=== PATIENT | male | born 1970 | race Caucasian/White ===

== ENCOUNTER 2017-05-16 16:35 | Outpatient (CLI) | payer BC ==
--- NOTE | 2017-05-16 16:49 | RAD ---
RADIOGRAPH CHEST 2 VIEWS: HISTORY: 47-year-old male with bronchitis, cough, and dyspnea. FINDINGS: There is no air space density, pulmonary edema, pleural effusion, pneumothorax, or cardiomegaly. IMPRESSION: No acute cardiopulmonary findings. jn POS: [facility]
== END 2017-05-16 16:36 | disposition home or self-care (01) ==
LOC: SCSRAD 16:35
PROVIDERS: ATTEND Nurse Practitioner Family
DX: J40 Bronchitis, not specified as acute or chronic (principal)
CPT/HCPCS: 71046

== ENCOUNTER 2018-08-28 07:53 | Emergency (ER) | payer BC ==
[2018-08-28 08:53] LABS: #Eosinphils 0.1 thou/uL (0.0-0.7); #Lymphocytes 1.6 thou/uL (1.20-3.40); #Monocytes 0.8 thou/uL (0.11-0.59); #Neutrophils 7.9 thou/uL (1.40-6.50); %Basophils 0.2 % (0.0-1.0); %Eosinophils 0.9 % (0.0-10.0); %Lymphocytes 15.2 % (21.0-51.0); %Monocytes 7.4 % (0.0-10.0); %Neutrophils 76.3 % (42.0-75.0); Hemoglobin 14.7 g/dL (14.0-18.0); Mean Corpuscular HGB CONC 35.3 g/dL (32.0-36.0); Mean Corpuscular Hemoglobin 31.1 pg (27.0-31.0); Mean Platelet Volume 6.9 fL (7.4-10.4); Platelet Count 251 thou/uL (130-400); RBC Distribution Width 12.3 % (11.5-14.5); Red Blood Cell (RBC) Count 4.74 mill/uL (4.70-6.10); White Blood Cell (WBC) Count 10.3 thou/uL (4.8-10.8)
[2018-08-28] MEDS ORDERED: Morphine 4 MG/ML VIAL ONE (08:56)
[2018-08-28] MEDS ORDERED: Ondansetron PF 4 MG/2 ML Vial ONE (08:56)
[2018-08-28 09:09] LABS: ALT (SGPT) 40 U/L (8-55); AST (SGOT) 23 U/L (5-34); Albumin 4.1 g/dL (3.5-5.0); Alkaline Phosphatase 86 U/L (40-150); Anion Gap 13 mmol/L (10-20); BUN (Urea Nitrogen) 13 mg/dL (8.9-20.6); Bilirubin, Total 0.6 mg/dL (0.2-1.2); Calc. Creatinine Clearance 0 mL/min (70-130); Calcium 9.2 mg/dL (7.8-10.44); Carbon Dioxide 24 mmol/L (22-29); Chloride 105 mmol/L (98-107); Estimated GFR-MDRD 63; Globulin 3.1 g/dL (2.4-3.5); Glucose 142 mg/dL (70-105); Lipase 31 U/L (8-78); Potassium 3.6 mmol/L (3.5-5.1); Protein, Total 7.2 g/dL (6.0-8.3); Sodium 138 mmol/L (136-145)
--- NOTE | 2018-08-28 09:27 | CT ---
CT ABDOMEN NONCONTRAST CT PELVIS NONCONTRAST: (urolithiasis protocol) DATE: 08/28/2018. TIME: 8:47 a.m. HISTORY: A 48-year-old male with left flank pain. COMPARISON: None available. TECHNIQUE: IV injection of iodinated contrast media: none Oral contrast media: none FINDINGS: Other than for urolithiasis, the lack of IV and oral contrast limits the evaluation. Lung bases are grossly clear. Diffusely low hepatic attenuation represents fatty liver. There is a transitional vertebra at the thoracolumbar junction. For the purposes of this report, the level with tiny, bilateral accessory ribs will be designated as L1 rather than T12. Then, bilateral pedicle sc rews are at L4, L5, and S1, with large laminectomy defect at midline. There is a 5 x 4 x 3 mm calculus in the left mid ureter at the L5 level causing mild left hydronephro sis. There is a 4 x 3 x 3 mm calculus in a left renal mid pole calyx. There is a 5 x 5 x 3 mm calculus at a right renal calyx. The right kidney is slightly malrotated. There is edema throughout the left perirenal space. There are multiple centrally located mildly enlarged mesenteric lymph nodes. Descending and sigmoid colonic diverticulosis without definite diverticulitis. No small bowel dilation. No ascites or pneu moperitoneum. Within the limitations of a noncontrast scan, no major abnormality identified involvin g appendix, abdominal aorta, adrenals, pancreas, spleen, or urinary bladder. IMPRESSION: 1. Left-sided obstructive uropathy: a 5 mm calculus in the left mid ureter causing mild left hydrone phrosis and left perirenal edema. 2. Bilateral nephrolithiasis: 1 calculus in each kidney. 3. Hepatic steatosis. 4. Status post posterior lumbar interbody fusion and laminectomies. MICHEL Black POS: [facility]
[2018-08-28 10:05] LABS: Bilirubin Negative (Negative); Blood, Urine Small (Negative); Clarity CLOUDY (Clear); Glucose, Urine (Dipstick) 100 mg/dL (Negative); Leukocyte Moderate (Negative); Nitrite Negative (Negative); Protein, Urine (Dipstick) Trace mg/dL (Neg-Trace); Specific Gravity, Urine 1.022 (1.002-1.036); Urobilinogen 0.2 mg/dL (0.2-1.0); pH, Urine 5.5 (5.0-9.0)
[2018-08-28 10:07] LABS: Bacteria/HPF None Seen HPF (None Seen); Hyaline Casts/LPF 7-10 HYALINE CAST LPF (0-3 Hyaline); Pathc Cast-AUWi Flag 0.27 (0-2.49); Squamous Epithelial 0-3 HPF (0-3)
[2018-08-28] MEDS ORDERED: Ketorolac Tromethamine 30 MG/ML VIAL ONE (10:25)
== END 2018-08-28 12:25 | disposition home or self-care (01) ==
LOC: ERS 07:53
DX: N13.2 Hydronephrosis with renal and ureteral calculous obstruction (principal); E11.9 Type 2 diabetes mellitus without complications; I10 Essential (primary) hypertension; Z79.4 Long term (current) use of insulin; Z87.442 Personal history of urinary calculi; Z79.899 Other long term (current) drug therapy
CPT/HCPCS: 36415; 74176; 80053; 81003; 81015; 83690; 85025; 87086; 96361; 96374; 96375; J1885; J2270; J2405

== ENCOUNTER 2021-09-07 17:07 | Inpatient (IN) | payer OTHER ==
[~2021-09-07 17:07] MED LIST: ISOVUE-370 76%-LOCM 1 ML ONE
[2021-09-07 17:29] LABS: #Basophils 0.1 thou/uL (0.0-0.2); #Eosinphils 0.2 thou/uL (0.0-0.7); #Lymphocytes 2.9 thou/uL (1.20-3.40); #Monocytes 0.5 thou/uL (0.11-0.59); #Neutrophils 9.4 thou/uL (1.40-6.50); %Basophils 0.7 % (0.0-1.0); %Eosinophils 1.6 % (0.0-10.0); %Lymphocytes 22.1 % (21.0-51.0); %Monocytes 3.8 % (0.0-10.0); %Neutrophils 71.8 % (42.0-75.0); Hemoglobin 14.1 g/dL (14.0-18.0); Mean Corpuscular HGB CONC 33.5 g/dL (32.0-36.0); Mean Corpuscular Hemoglobin 30.9 pg (27.0-31.0); Mean Corpuscular Volume 92.2 fL (78.0-98.0); Mean Platelet Volume 7.4 fL (7.4-10.4); Platelet Count 364 thou/uL (130-400); RBC Distribution Width 12.4 % (11.5-14.5); Red Blood Cell (RBC) Count 4.56 mill/uL (4.70-6.10); White Blood Cell (WBC) Count 13.1 thou/uL (4.8-10.8)
[2021-09-07 17:40] LABS: ALT (SGPT) 154 U/L (8-55); AST (SGOT) 148 U/L (5-34); Alkaline Phosphatase 90 U/L (40-110); Anion Gap 18 mmol/L (10-20); BUN (Urea Nitrogen) 20 mg/dL (8.4-25.7); Bilirubin, Total 0.5 mg/dL (0.2-1.2); Calc. Creatinine Clearance 0 mL/min (70-130); Calcium 9.6 mg/dL (7.8-10.44); Carbon Dioxide 21 mmol/L (22-29); Chloride 101 mmol/L (98-107); Globulin 3.3 g/dL (2.4-3.5); Glucose 326 mg/dL (70-105); Potassium 3.9 mmol/L (3.5-5.1); Protein, Total 7.3 g/dL (6.0-8.3); Sodium 136 mmol/L (136-145)
[2021-09-07] MEDS ORDERED: Dextrose 50% Abboject 50 ML SYRINGE SLOW IVP PRN (17:43)
[2021-09-07] MEDS ORDERED: Promethazine HCl 25 MG/ML VIAL IM PRN ×2 (17:43→22:29)
[2021-09-07] MEDS ORDERED: Dextrose 5% in Water 1,000 ML IV PRN (17:43)
[2021-09-07] MEDS ORDERED: Ondansetron PF 4 MG/2 ML Vial IVP PRN (17:43)
[2021-09-07] MEDS ORDERED: Sodium Chloride 0.9% 1,000 ML IV SCH (17:45)
[2021-09-07] MEDS ORDERED: traMADol HCl 50 MG TAB PO PRN (17:47)
[2021-09-07] MEDS ORDERED: Cyclobenzaprine 10 MG TAB PO PRN (17:48)
[2021-09-07 17:55] LABS: PTT 24.8 sec (22.9-36.1); Prothrombin Time 12.7 sec (12.0-14.7)
[2021-09-07] MEDS ORDERED: Acetaminophen 325 MG TAB PO SCH ×2 (18:00→20:00)
[2021-09-07] MEDS ORDERED: Boostrix 0.5 ML (Tdap) VIAL ONE (18:24)
[2021-09-07] MEDS ORDERED: Morphine 4 MG/ML VIAL ONE (18:27)
[2021-09-07] MEDS ORDERED: fentaNYL Citrate/PF 100 MCG/2 ML SYRINGE ONE (18:33)
[2021-09-07] MEDS ORDERED: Lidocaine 2% Jelly 5 ML TUBE ONE (18:34)
[2021-09-07] MEDS ORDERED: Lidocaine 1% w/Epinephrine 1:100K 20 ML VIAL ONE ×2 (18:36→19:41)
[2021-09-07] MEDS ORDERED: PROPOFOL 200 MG/20 ML VIAL ONE (19:19)
[2021-09-07] MEDS ORDERED: Succinylcholine 200 MG/10 ml SYRINGE FS ONE (19:19)
[2021-09-07] MEDS ORDERED: Rocuronium Bromide 10 MG/ML (10ML VIAL) ONE (19:19)
[2021-09-07] MEDS ORDERED: Lidocaine 1% PF 5 ML VIAL ONE (19:19)
[2021-09-07] MEDS ORDERED: Phenylephrine 10 MG/ML VIAL ONE (19:19)
[2021-09-07] MEDS ORDERED: Ondansetron PF 4 MG/2 ML Vial ONE (19:19)
[2021-09-07] MEDS ORDERED: Labetalol HCl 100 MG/20 ML VIAL ONE (19:19)
[2021-09-07] MEDS ORDERED: Metoclopramide HCl 10 MG/2 ML VIAL ONE (19:19)
[2021-09-07] MEDS ORDERED: Bupivacaine 0.25% HCL 30 ML VIAL ONE (19:41)
[2021-09-07] MEDS ORDERED: Thrombin 5000 UNITS/5 ML VIAL ONE (19:41)
[2021-09-07] MEDS ORDERED: Neomycin-Polymyxin 1 ML AMP ONE (19:41)
[2021-09-07] MEDS ORDERED: Bacitracin Zinc Ointment 30 gm TUBE ONE (19:42)
[2021-09-07 20:07] LABS: SARS-CoV-2 NAA Rapid Test Not Detected (NotDetected)
[2021-09-07] MEDS ORDERED: Albumin 5% 250 ML ONE (20:57)
[2021-09-07] MEDS ORDERED: Famotidine/PF 20 mg/2ml Vial SLOW IVP SCH (21:00)
[2021-09-07] MEDS ORDERED: SUGAMMADEX SODIUM 200 MG/2 ML VIAL ONE (21:50)
[2021-09-07] MEDS ORDERED: HYDROcodone/Acetaminophen 10/325 mg Tablet PO PRN ×2 (22:13)
[2021-09-07] MEDS ORDERED: Bisacodyl 10 MG SUPP PR PRN (22:13)
[2021-09-07] MEDS ORDERED: Promethazine HCl 25 MG/ML VIAL IVPB PRN (22:29)
[2021-09-07] MEDS ORDERED: HYDROmorphone 2 MG/ML VIAL SLOW IVP PRN (22:29)
[2021-09-07] MEDS ORDERED: Ondansetron HCl/PF 4 MG/2 ML Vial IVP PRN (22:29)
[2021-09-07] MEDS ORDERED: Fentanyl 100 MCG/2 ML VIAL ONE (22:33)
[2021-09-07] MEDS: Morphine 2 MG/ML VIAL SLOW IVP PRN (23:41)
[2021-09-07] MEDS: Sodium Chloride 0.9% 1,000 ML IV SCH (23:46)
[2021-09-07] MEDS: traMADol HCl 50 MG TAB PO SCH (23:53)
[2021-09-07] MEDS: Acetaminophen 325 MG TAB PO SCH (23:54)
[2021-09-08] MEDS: Senokot S 8.6-50 MG TAB PO SCH ×3 (00:27→22:11)
[2021-09-08] MEDS: Pregabalin 50 MG CAP PO SCH ×3 (00:27→22:12)
[2021-09-08] MEDS: traMADol HCl 50 MG TAB PO SCH ×4 (00:27→22:11)
[2021-09-08 00:40] LABS: #Eosinphils 0.1 thou/uL (0.0-0.7); #Lymphocytes 0.9 thou/uL (1.20-3.40); #Monocytes 0.8 thou/uL (0.11-0.59); %Basophils 0.3 % (0.0-1.0); %Eosinophils 0.4 % (0.0-10.0); %Lymphocytes 5.8 % (21.0-51.0); %Monocytes 5.6 % (0.0-10.0); %Neutrophils 87.9 % (42.0-75.0); Hemoglobin 12.6 g/dL (14.0-18.0); Mean Corpuscular HGB CONC 34.4 g/dL (32.0-36.0); Mean Corpuscular Hemoglobin 31.5 pg (27.0-31.0); Mean Corpuscular Volume 91.6 fL (78.0-98.0); Mean Platelet Volume 7.5 fL (7.4-10.4); Platelet Count 238 thou/uL (130-400); RBC Distribution Width 12.6 % (11.5-14.5); Red Blood Cell (RBC) Count 4.01 mill/uL (4.70-6.10); White Blood Cell (WBC) Count 14.8 thou/uL (4.8-10.8)
[2021-09-08 00:55] LABS: Lactic Acid 2.7 mmol/L (0.5-2.2)
[2021-09-08] MEDS: HumaLOG 300 UNITS/3 ML VIAL SC PRN ×2 (01:08→06:07)
[2021-09-08] MEDS: CEFAZOLIN 2 GM in Sodium Chloride 0.9% 100 ML IVPB SCH ×3 (01:46→18:13)
[2021-09-08] MEDS: Morphine 2 MG/ML VIAL SLOW IVP PRN ×3 (01:46→07:55)
[2021-09-08] MEDS: Acetaminophen 325 MG TAB PO SCH ×3 (05:31→18:17)
[2021-09-08] MEDS: Tamsulosin HCl 0.4 MG CAP PO SCH (05:31)
[2021-09-08 05:57] LABS: #Lymphocytes 0.9 thou/uL (1.20-3.40); #Monocytes 0.8 thou/uL (0.11-0.59); #Neutrophils 11.5 thou/uL (1.40-6.50); %Basophils 0.1 % (0.0-1.0); %Eosinophils 0.1 % (0.0-10.0); %Lymphocytes 7.1 % (21.0-51.0); %Monocytes 5.9 % (0.0-10.0); %Neutrophils 86.7 % (42.0-75.0); Hemoglobin 12.5 g/dL (14.0-18.0); Mean Corpuscular HGB CONC 32.8 g/dL (32.0-36.0); Mean Corpuscular Hemoglobin 30.6 pg (27.0-31.0); Mean Corpuscular Volume 93.4 fL (78.0-98.0); Mean Platelet Volume 7.4 fL (7.4-10.4); Platelet Count 241 thou/uL (130-400); RBC Distribution Width 12.8 % (11.5-14.5); Red Blood Cell (RBC) Count 4.09 mill/uL (4.70-6.10); White Blood Cell (WBC) Count 13.3 thou/uL (4.8-10.8)
[2021-09-08 06:15] LABS: Anion Gap 17 mmol/L (10-20); BUN (Urea Nitrogen) 20 mg/dL (8.4-25.7); Calc. Creatinine Clearance 116 mL/min (70-130); Calcium 8.2 mg/dL (7.8-10.44); Carbon Dioxide 22 mmol/L (22-29); Chloride 104 mmol/L (98-107); Glucose 347 mg/dL (70-105); Magnesium 1.3 mg/dL (1.6-2.6); Potassium 4.3 mmol/L (3.5-5.1); Sodium 139 mmol/L (136-145)
[2021-09-08 06:19] LABS: Phosphorus 4.5 mg/dL (2.3-4.7)
[2021-09-08 06:22] LABS: ALT (SGPT) 98 U/L (8-55); AST (SGOT) 78 U/L (5-34); Albumin 3.6 g/dL (3.5-5.0); Alkaline Phosphatase 64 U/L (40-110); Bilirubin, Direct 0.2 mg/dL (0.1-0.3); Bilirubin, Total 0.5 mg/dL (0.2-1.2); Protein, Total 6.5 g/dL (6.0-8.3)
[2021-09-08] MEDS: Sodium Chloride 0.9% 1,000 ML IV SCH ×3 (07:58→15:20)
[2021-09-08] MEDS ORDERED: Insulin Glargine 30 UNITS/0.3 ML VIAL SC SCH ×3 (09:00→21:00)
[2021-09-08] MEDS: Polyethylene Glycol 3350 17 GM Packet PO SCH (09:36)
[2021-09-08] MEDS ORDERED: traMADol HCl 50 MG TAB PO SCH ×2 (11:25→11:30)
[2021-09-08] MEDS ORDERED: Cyclobenzaprine 10 MG TAB PO PRN (11:27)
[2021-09-08] MEDS: Magnesium Sulfate 3 GM in Sodium Chloride 0.9% 100 ML IVPB SCH ×2 (14:13→14:45)
[2021-09-08] MEDS ORDERED: Magnesium Sulfate 3 GM in Sodium Chloride 0.9% 100 ML IVPB SCH (15:00)
[2021-09-08] MEDS ORDERED: Insulin Regular 300 UNITS/3 ML VIAL IVP SCH (17:34)
[2021-09-08] MEDS: cloNIDine 0.2 MG TAB PO SCH (18:16)
[2021-09-08] MEDS: Insulin Glargine 30 UNITS/0.3 ML VIAL SC SCH (22:13)
[2021-09-08] MEDS ORDERED: Ibuprofen 200 MG TAB PO SCH (22:30)
[2021-09-09] MEDS: HumaLOG 300 UNITS/3 ML VIAL SC PRN ×4 (01:01→20:08)
[2021-09-09] MEDS: cloNIDine 0.2 MG TAB PO SCH ×4 (01:03→19:37)
[2021-09-09] MEDS: Acetaminophen 325 MG TAB PO SCH ×4 (01:05→19:37)
[2021-09-09] MEDS: CEFAZOLIN 2 GM in Sodium Chloride 0.9% 100 ML IVPB SCH (01:09)
[2021-09-09 04:56] LABS: #Eosinphils 0.1 thou/uL (0.0-0.7); #Lymphocytes 1.3 thou/uL (1.20-3.40); #Monocytes 1.2 thou/uL (0.11-0.59); #Neutrophils 10.3 thou/uL (1.40-6.50); %Basophils 0.2 % (0.0-1.0); %Eosinophils 0.5 % (0.0-10.0); %Lymphocytes 9.9 % (21.0-51.0); %Monocytes 9.1 % (0.0-10.0); %Neutrophils 80.2 % (42.0-75.0); Mean Corpuscular HGB CONC 32.6 g/dL (32.0-36.0); Mean Corpuscular Hemoglobin 31.2 pg (27.0-31.0); Mean Corpuscular Volume 95.8 fL (78.0-98.0); Mean Platelet Volume 7.2 fL (7.4-10.4); Platelet Count 218 thou/uL (130-400); RBC Distribution Width 12.9 % (11.5-14.5); Red Blood Cell (RBC) Count 3.54 mill/uL (4.70-6.10); White Blood Cell (WBC) Count 12.8 thou/uL (4.8-10.8)
[2021-09-09] MEDS: traMADol HCl 50 MG TAB PO SCH ×2 (05:11→13:36)
[2021-09-09] MEDS: Tamsulosin HCl 0.4 MG CAP PO SCH (05:12)
[2021-09-09 05:21] LABS: Hemoglobin A1c 9.2 % (4.0-6.0)
[2021-09-09] MEDS ORDERED: Ibuprofen 200 MG TAB PO SCH (06:00)
[2021-09-09 06:30] LABS: Anion Gap 12 mmol/L (10-20); BUN (Urea Nitrogen) 27 mg/dL (8.4-25.7); Calc. Creatinine Clearance 93 mL/min (70-130); Calcium 7.8 mg/dL (7.8-10.44); Carbon Dioxide 25 mmol/L (22-29); Chloride 101 mmol/L (98-107); Glucose 286 mg/dL (70-105); Magnesium 2.1 mg/dL (1.6-2.6); Phosphorus 3.5 mg/dL (2.3-4.7); Potassium 4.4 mmol/L (3.5-5.1); Sodium 134 mmol/L (136-145)
[2021-09-09] MEDS ORDERED: Insulin Glargine 30 UNITS/0.3 ML VIAL SC SCH ×2 (09:00)
[2021-09-09] MEDS: Sodium Chloride 0.9% 1,000 ML IV SCH ×4 (09:42→19:39)
[2021-09-09] MEDS: Polyethylene Glycol 3350 17 GM Packet PO SCH (09:44)
[2021-09-09] MEDS: Pregabalin 50 MG CAP PO SCH ×2 (09:45→20:46)
[2021-09-09] MEDS: Senokot S 8.6-50 MG TAB PO SCH ×2 (09:46→20:46)
[2021-09-09] MEDS ORDERED: Enoxaparin Sodium 40 MG/0.4 ML SYRINGE SC SCH ×2 (10:00→13:30)
[2021-09-09] MEDS ORDERED: Magnesium Citrate 300 ML BOT PO SCH (17:15)
[2021-09-09] MEDS ORDERED: traMADol HCl 50 MG TAB PO PRN (19:19)
[2021-09-09] MEDS: Insulin Glargine 30 UNITS/0.3 ML VIAL SC SCH (20:46)
[2021-09-09 21:40] LABS: Actual Bicarbonate (HCO3a) 25.6 mEq/L (22-28); Base Excess (BEa) -1.5 mEq/L (-2.0 to +3.0); CO2 Tension 54.7 mmHg (35.0-45.0); Calcium, Ionized (arterial) 0.98 mmol/L (1.12-1.30); Carboxyhemoglobin (COHb) 2.1 gm% (0.0-3.0); Hemoglobin (Hb) 10.8 g/dL (14.0-18.0); Potassium - ABG Lab 4.31 mmol/L (3.70-5.30); pH, Arterial 7.29 (7.35-7.45)
[2021-09-09 21:41] LABS: ALV-art Gradient 21.355 mmHg (0-20); Puncture Site RRA
[2021-09-09 21:47] LABS: #Lymphocytes 0.6 thou/uL (1.20-3.40); #Monocytes 0.9 thou/uL (0.11-0.59); #Neutrophils 10.9 thou/uL (1.40-6.50); %Basophils 0.1 % (0.0-1.0); %Eosinophils 0.1 % (0.0-10.0); %Lymphocytes 4.8 % (21.0-51.0); %Monocytes 7.3 % (0.0-10.0); %Neutrophils 87.7 % (42.0-75.0); Hemoglobin 10.1 g/dL (14.0-18.0); Mean Corpuscular Hemoglobin 31.1 pg (27.0-31.0); Mean Corpuscular Volume 94.4 fL (78.0-98.0); Platelet Count 213 thou/uL (130-400); RBC Distribution Width 12.8 % (11.5-14.5); Red Blood Cell (RBC) Count 3.26 mill/uL (4.70-6.10); White Blood Cell (WBC) Count 12.4 thou/uL (4.8-10.8)
[2021-09-09 21:58] LABS: INR-International Normal Ratio 1.1; PTT 37.9 sec (22.9-36.1); Prothrombin Time 14.7 sec (12.0-14.7)
[2021-09-09 22:05] LABS: Anion Gap 12 mmol/L (10-20); BUN (Urea Nitrogen) 33 mg/dL (8.4-25.7); Calc. Creatinine Clearance 76 mL/min (70-130); Calcium 7.4 mg/dL (7.8-10.44); Carbon Dioxide 24 mmol/L (22-29); Chloride 99 mmol/L (98-107); Glucose 311 mg/dL (70-105); Magnesium 1.8 mg/dL (1.6-2.6); Phosphorus 3.3 mg/dL (2.3-4.7); Potassium 4.4 mmol/L (3.5-5.1); Sodium 131 mmol/L (136-145)
[2021-09-09 22:11] LABS: Troponin I 0.012 ng/mL (< 0.028)
[2021-09-09] MEDS ORDERED: Calcium Chloride 13.6 MEQ in Sodium Chloride 0.9% 100 ML IVPB SCH (23:00)
[2021-09-09 23:35] LABS: Bilirubin Negative (Negative); Blood, Urine 2+ (Negative); Clarity Turbid (Clear); Glucose, Urine (Dipstick) 500 mg/dL (Negative); Ketone, Urine Trace mg/dL (Negative); Leukocyte Negative Leu/uL (Negative); Nitrite Negative (Negative); Protein, Urine (Dipstick) 50 mg/dL (Neg-Trace); Specific Gravity, Urine 1.026 (1.002-1.036); Urobilinogen Normal mg/dL (Less than 2); pH, Urine 5.5 (5.0-9.0)
[2021-09-09 23:47] LABS: RBC/HPF 0-3 HPF (0-3); Squamous Epithelial 0-3 HPF (0-3); WBC/HPF 0-3 HPF (0-3)
[2021-09-09 23:48] LABS: Bacteria/HPF 1+ HPF (None Seen); Urine Culture Reflex Yes Yes
[2021-09-09] MEDS ORDERED: Furosemide 20 MG/2 ML VIAL SLOW IVP SCH (23:59)
[2021-09-10 00:02] LABS: Actual Bicarbonate (HCO3a) 23.9 mEq/L (22-28); Base Excess (BEa) -2.9 mEq/L (-2.0 to +3.0); CO2 Tension 50.3 mmHg (35.0-45.0); Calcium, Ionized (arterial) 0.99 mmol/L (1.12-1.30); Carboxyhemoglobin (COHb) 1.5 gm% (0.0-3.0); Hemoglobin (Hb) 11.5 g/dL (14.0-18.0); O2 Tension (PaO2), arterial 106.6 mmHg (80.0-100.0)
[2021-09-10 00:03] LABS: ALV-art Gradient 115.725 mmHg (0-20); Puncture Site RRA
[2021-09-10] MEDS ORDERED: Magnesium 2 GM/50 ML(in water) 2 GM in Premix Bag 1 BAG IVPB SCH (00:30)
[2021-09-10] MEDS ORDERED: Calcium Chloride 1 GM/10 ML Abboject SYRINGE IVP SCH (00:45)
[2021-09-10] MEDS: Acetaminophen 325 MG TAB PO SCH ×5 (01:10→23:27)
[2021-09-10] MEDS: cloNIDine 0.2 MG TAB PO SCH ×5 (01:11→23:27)
[2021-09-10] MEDS: Sodium Chloride 0.9% 1,000 ML IV SCH ×4 (01:12→17:58)
[2021-09-10 03:43] LABS: #Lymphocytes 0.4 thou/uL (1.20-3.40); #Monocytes 0.9 thou/uL (0.11-0.59); #Neutrophils 10.3 thou/uL (1.40-6.50); %Basophils 0.1 % (0.0-1.0); %Eosinophils 0.1 % (0.0-10.0); %Lymphocytes 3.8 % (21.0-51.0); %Monocytes 7.3 % (0.0-10.0); %Neutrophils 88.7 % (42.0-75.0); Hemoglobin 10.3 g/dL (14.0-18.0); Mean Corpuscular HGB CONC 33.6 g/dL (32.0-36.0); Mean Platelet Volume 7.2 fL (7.4-10.4); Platelet Count 194 thou/uL (130-400); RBC Distribution Width 12.7 % (11.5-14.5); Red Blood Cell (RBC) Count 3.24 mill/uL (4.70-6.10); White Blood Cell (WBC) Count 11.7 thou/uL (4.8-10.8)
[2021-09-10 03:51] LABS: INR-International Normal Ratio 1.2; PTT 42.5 sec (22.9-36.1); Prothrombin Time 14.9 sec (12.0-14.7)
[2021-09-10] MEDS ORDERED: Sodium Chloride 0.9% 1,000 ML IV SCH (04:00)
[2021-09-10 04:16] LABS: Anion Gap 14 mmol/L (10-20); BUN (Urea Nitrogen) 36 mg/dL (8.4-25.7); Calc. Creatinine Clearance 81 mL/min (70-130); Calcium 8.9 mg/dL (7.8-10.44); Carbon Dioxide 22 mmol/L (22-29); Chloride 101 mmol/L (98-107); Glucose 291 mg/dL (70-105); Magnesium 2.3 mg/dL (1.6-2.6); Phosphorus 3.5 mg/dL (2.3-4.7); Potassium 4.2 mmol/L (3.5-5.1); Sodium 133 mmol/L (136-145)
[2021-09-10 04:29] LABS: Lactic Acid 0.8 mmol/L (0.5-2.2)
[2021-09-10] MEDS ORDERED: Sodium Chloride 0.9% 500 ML IV SCH (04:30)
[2021-09-10] MEDS: Tamsulosin HCl 0.4 MG CAP PO SCH (05:50)
[2021-09-10] MEDS: HumaLOG 300 UNITS/3 ML VIAL SC PRN (05:52)
[2021-09-10 07:17] LABS: Anion Gap 12 mmol/L (10-20); BUN (Urea Nitrogen) 34 mg/dL (8.4-25.7); Calc. Creatinine Clearance 90 mL/min (70-130); Calcium 8.2 mg/dL (7.8-10.44); Carbon Dioxide 24 mmol/L (22-29); Chloride 102 mmol/L (98-107); Glucose 258 mg/dL (70-105); Sodium 134 mmol/L (136-145)
[2021-09-10] MEDS ORDERED: Sodium Bicarb 50 MEQ/50 ML Abboject 8.4% SYRINGE IVP SCH ×2 (08:05→08:15)
[2021-09-10] MEDS: Polyethylene Glycol 3350 17 GM Packet PO SCH (09:44)
[2021-09-10] MEDS: Senokot S 8.6-50 MG TAB PO SCH ×2 (09:44→20:31)
[2021-09-10] MEDS: Insulin Glargine 30 UNITS/0.3 ML VIAL SC SCH ×2 (09:51→20:31)
[2021-09-10] MEDS: Pregabalin 50 MG CAP PO SCH ×2 (09:54→20:31)
[2021-09-10] MEDS: Enoxaparin Sodium 40 MG/0.4 ML SYRINGE SC SCH (10:45)
[2021-09-10] MEDS: hydrALAZINE 20 MG/ML VIAL SLOW IVP PRN ×2 (11:49→15:56)
[2021-09-10 16:35] LABS: Actual Bicarbonate (HCO3a) 26.1 mEq/L (22-28); Base Excess (BEa) 0.7 mEq/L (-2.0 to +3.0); CO2 Tension 45.5 mmHg (35.0-45.0); Carboxyhemoglobin (COHb) 1.3 gm% (0.0-3.0); Hemoglobin (Hb) 11.3 g/dL (14.0-18.0); O2 Tension (PaO2), arterial 64.4 mmHg (80.0-100.0); Potassium - ABG Lab 3.56 mmol/L (3.70-5.30); pH, Arterial 7.38 (7.35-7.45)
[2021-09-10 16:43] LABS: Hemoglobin 10.6 g/dL (14.0-18.0); Mean Corpuscular HGB CONC 32.7 g/dL (32.0-36.0); Mean Corpuscular Volume 94.7 fL (78.0-98.0); Platelet Count 202 thou/uL (130-400); RBC Distribution Width 12.8 % (11.5-14.5); Red Blood Cell (RBC) Count 3.41 mill/uL (4.70-6.10); White Blood Cell (WBC) Count 10.7 thou/uL (4.8-10.8)
[2021-09-10 16:53] LABS: Puncture Site RRA
[2021-09-10] MEDS ORDERED: Morphine 2 MG/ML VIAL SLOW IVP PRN (17:01)
[2021-09-10] MEDS: Labetalol HCl 100 MG/20 ML VIAL SLOW IVP PRN (22:46)
[2021-09-10] MEDS ORDERED: Haloperidol Lactate 5 MG/ML VIAL SLOW IVP SCH (23:15)
[2021-09-11] MEDS: traMADol HCl 50 MG TAB PO SCH ×4 (01:47→18:18)
[2021-09-11] MEDS: Acetaminophen 325 MG TAB PO SCH ×3 (05:36→18:17)
[2021-09-11] MEDS: cloNIDine 0.2 MG TAB PO SCH ×3 (05:37→18:18)
[2021-09-11] MEDS: Tamsulosin HCl 0.4 MG CAP PO SCH (05:38)
[2021-09-11] MEDS: Sodium Chloride 0.9% 1,000 ML IV SCH ×2 (05:51→13:29)
[2021-09-11 07:13] LABS: #Lymphocytes 0.6 thou/uL (1.20-3.40); #Monocytes 0.8 thou/uL (0.11-0.59); #Neutrophils 8.4 thou/uL (1.40-6.50); %Basophils 0.1 % (0.0-1.0); %Eosinophils 0.2 % (0.0-10.0); %Monocytes 8.2 % (0.0-10.0); %Neutrophils 85.5 % (42.0-75.0); Hemoglobin 9.4 g/dL (14.0-18.0); Mean Corpuscular HGB CONC 31.8 g/dL (32.0-36.0); Mean Corpuscular Hemoglobin 30.4 pg (27.0-31.0); Mean Corpuscular Volume 95.5 fL (78.0-98.0); Mean Platelet Volume 7.1 fL (7.4-10.4); Platelet Count 224 thou/uL (130-400); RBC Distribution Width 12.5 % (11.5-14.5); Red Blood Cell (RBC) Count 3.08 mill/uL (4.70-6.10); White Blood Cell (WBC) Count 9.8 thou/uL (4.8-10.8)
[2021-09-11 07:46] LABS: Anion Gap 14 mmol/L (10-20); BUN (Urea Nitrogen) 24 mg/dL (8.4-25.7); Calc. Creatinine Clearance 161 mL/min (70-130); Calcium 8.3 mg/dL (7.8-10.44); Carbon Dioxide 24 mmol/L (22-29); Chloride 106 mmol/L (98-107); Glucose 156 mg/dL (70-105); Magnesium 1.9 mg/dL (1.6-2.6); Phosphorus 1.8 mg/dL (2.3-4.7); Potassium 3.4 mmol/L (3.5-5.1); Sodium 141 mmol/L (136-145)
[2021-09-11] MEDS ORDERED: Electrolyte Replacement Protocol FS PRN (08:30)
[2021-09-11] MEDS ORDERED: Potassium Phosphate 30 MMOL in Sodium Chloride 0.9% 250 ML 250 ML IVPB SCH ×2 (09:00→21:45)
[2021-09-11] MEDS ORDERED: Magnesium 2 GM/50 ML(in water) 2 GM in Premix Bag 1 BAG IVPB SCH (10:00)
[2021-09-11] MEDS: Enoxaparin Sodium 40 MG/0.4 ML SYRINGE SC SCH (10:49)
[2021-09-11] MEDS: Pregabalin 50 MG CAP PO SCH ×2 (10:49→22:00)
[2021-09-11] MEDS: Polyethylene Glycol 3350 17 GM Packet PO SCH (10:50)
[2021-09-11] MEDS: Senokot S 8.6-50 MG TAB PO SCH ×2 (10:50→21:32)
[2021-09-11] MEDS: Insulin Glargine 30 UNITS/0.3 ML VIAL SC SCH ×2 (13:25→22:00)
[2021-09-11] MEDS: traMADol HCl 50 MG TAB PO PRN (15:41)
[2021-09-11 20:21] LABS: Phosphorus 1.7 mg/dL (2.3-4.7)
[2021-09-11] MEDS ORDERED: Potassium Phosphate 15 MMOL in Sodium Chloride 0.9% 100 ML IVPB SCH (21:00)
[2021-09-12] MEDS: Sodium Chloride 0.9% 1,000 ML IV SCH ×2 (00:05→08:07)
[2021-09-12] MEDS: traMADol HCl 50 MG TAB PO SCH ×5 (00:17→23:55)
[2021-09-12] MEDS: cloNIDine 0.2 MG TAB PO SCH ×5 (00:23→23:55)
[2021-09-12] MEDS: Acetaminophen 325 MG TAB PO SCH ×5 (00:24→23:54)
[2021-09-12 04:46] LABS: Anion Gap 13 mmol/L (10-20); BUN (Urea Nitrogen) 22 mg/dL (8.4-25.7); Calc. Creatinine Clearance 193 mL/min (70-130); Calcium 8.3 mg/dL (7.8-10.44); Carbon Dioxide 27 mmol/L (22-29); Chloride 105 mmol/L (98-107); Glucose 148 mg/dL (70-105); Magnesium 1.9 mg/dL (1.6-2.6); Phosphorus 2.5 mg/dL (2.3-4.7); Potassium 3.6 mmol/L (3.5-5.1); Sodium 141 mmol/L (136-145)
[2021-09-12] MEDS: Tamsulosin HCl 0.4 MG CAP PO SCH (06:05)
[2021-09-12] MEDS ORDERED: Magnesium 2 GM/50 ML(in water) 2 GM in Premix Bag 1 BAG IVPB SCH (08:00)
[2021-09-12] MEDS: Senokot S 8.6-50 MG TAB PO SCH ×2 (08:03→21:15)
[2021-09-12] MEDS: Enoxaparin Sodium 40 MG/0.4 ML SYRINGE SC SCH (08:03)
[2021-09-12] MEDS: Pregabalin 50 MG CAP PO SCH ×2 (08:04→21:14)
[2021-09-12] MEDS: Polyethylene Glycol 3350 17 GM Packet PO SCH (08:04)
[2021-09-12] MEDS: Insulin Glargine 30 UNITS/0.3 ML VIAL SC SCH ×2 (08:05→08:06)
[2021-09-12] MEDS: HumaLOG 300 UNITS/3 ML VIAL SC PRN (19:10)
[2021-09-12] MEDS: Neostigmine 0.5 MG in Pre-Filled Syringe 1 EACH SC SCH ×2 (19:10→23:55)
[2021-09-12] MEDS ORDERED: Amlodipine 10 MG TAB PO SCH (20:30)
[2021-09-12] MEDS: hydrALAZINE 20 MG/ML VIAL SLOW IVP PRN (21:24)
[2021-09-13] MEDS: Sodium Chloride 0.9% 1,000 ML IV SCH ×3 (03:47→16:54)
[2021-09-13] MEDS: cloNIDine 0.2 MG TAB PO SCH ×4 (05:23→23:32)
[2021-09-13] MEDS: Tamsulosin HCl 0.4 MG CAP PO SCH (05:23)
[2021-09-13] MEDS: Acetaminophen 325 MG TAB PO SCH ×4 (05:23→23:32)
[2021-09-13] MEDS: Neostigmine 0.5 MG in Pre-Filled Syringe 1 EACH SC SCH (05:24)
[2021-09-13] MEDS: traMADol HCl 50 MG TAB PO SCH ×4 (05:24→23:32)
[2021-09-13] MEDS ORDERED: Amlodipine 10 MG TAB PO SCH (09:00)
[2021-09-13] MEDS: Losartan 25 MG TAB PO SCH (10:21)
[2021-09-13] MEDS: Pregabalin 50 MG CAP PO SCH ×2 (10:21→22:01)
[2021-09-13] MEDS: Insulin Glargine 30 UNITS/0.3 ML VIAL SC SCH ×2 (10:22→22:02)
[2021-09-13] MEDS: Enoxaparin Sodium 40 MG/0.4 ML SYRINGE SC SCH (10:23)
[2021-09-13] MEDS: Senokot S 8.6-50 MG TAB PO SCH ×2 (12:35→22:02)
[2021-09-13] MEDS: Polyethylene Glycol 3350 17 GM Packet PO SCH (12:35)
[2021-09-13] MEDS: HumaLOG 300 UNITS/3 ML VIAL SC PRN (12:41)
[2021-09-13] MEDS: Amlodipine 10 MG TAB PO SCH (22:02)
[2021-09-13] MEDS: Silver Sulfadiazine 50 GM TUBE TOP SCH (22:03)
[2021-09-14] MEDS: traMADol HCl 50 MG TAB PO SCH ×4 (05:26→23:45)
[2021-09-14] MEDS: Tamsulosin HCl 0.4 MG CAP PO SCH (05:26)
[2021-09-14] MEDS: Acetaminophen 325 MG TAB PO SCH ×4 (05:26→23:45)
[2021-09-14] MEDS: cloNIDine 0.2 MG TAB PO SCH ×4 (05:26→23:45)
[2021-09-14] MEDS: Polyethylene Glycol 3350 17 GM Packet PO SCH (08:29)
[2021-09-14] MEDS: Senokot S 8.6-50 MG TAB PO SCH ×2 (08:30→20:14)
[2021-09-14] MEDS: Pregabalin 50 MG CAP PO SCH ×2 (08:49→20:13)
[2021-09-14] MEDS: Losartan 25 MG TAB PO SCH (08:50)
[2021-09-14] MEDS: Enoxaparin Sodium 40 MG/0.4 ML SYRINGE SC SCH (08:50)
[2021-09-14] MEDS: Insulin Glargine 30 UNITS/0.3 ML VIAL SC SCH ×2 (08:51→20:13)
[2021-09-14] MEDS: Silver Sulfadiazine 50 GM TUBE TOP SCH ×2 (08:52→20:14)
[2021-09-14] MEDS: HumaLOG 300 UNITS/3 ML VIAL SC PRN (12:06)
[2021-09-14] MEDS: Amlodipine 10 MG TAB PO SCH (20:12)
[2021-09-14] MEDS: Enoxaparin Sodium 30 MG/0.3 ML SYRINGE SC SCH (20:13)
[2021-09-15] MEDS: cloNIDine 0.2 MG TAB PO SCH ×4 (05:22→23:52)
[2021-09-15] MEDS: Acetaminophen 325 MG TAB PO SCH ×4 (05:22→23:51)
[2021-09-15] MEDS: traMADol HCl 50 MG TAB PO SCH ×4 (05:22→23:52)
[2021-09-15] MEDS: Tamsulosin HCl 0.4 MG CAP PO SCH (05:23)
[2021-09-15] MEDS: Enoxaparin Sodium 30 MG/0.3 ML SYRINGE SC SCH ×2 (08:16→21:07)
[2021-09-15] MEDS: Senokot S 8.6-50 MG TAB PO SCH ×2 (08:16→22:22)
[2021-09-15] MEDS: Polyethylene Glycol 3350 17 GM Packet PO SCH (08:16)
[2021-09-15] MEDS: Pregabalin 50 MG CAP PO SCH ×2 (08:17→21:06)
[2021-09-15] MEDS: Insulin Glargine 30 UNITS/0.3 ML VIAL SC SCH ×2 (08:17→21:07)
[2021-09-15] MEDS: Losartan 25 MG TAB PO SCH (08:19)
[2021-09-15] MEDS: Silver Sulfadiazine 50 GM TUBE TOP SCH ×2 (08:22→21:10)
[2021-09-15] MEDS: HumaLOG 300 UNITS/3 ML VIAL SC PRN ×2 (11:42→21:09)
[2021-09-15] MEDS: Amlodipine 10 MG TAB PO SCH (21:07)
[2021-09-16] MEDS: cloNIDine 0.2 MG TAB PO SCH ×3 (05:16→18:38)
[2021-09-16] MEDS: Tamsulosin HCl 0.4 MG CAP PO SCH (05:16)
[2021-09-16] MEDS: Acetaminophen 325 MG TAB PO SCH ×3 (05:17→18:36)
[2021-09-16] MEDS: traMADol HCl 50 MG TAB PO SCH ×3 (05:17→18:39)
[2021-09-16] MEDS: Enoxaparin Sodium 30 MG/0.3 ML SYRINGE SC SCH ×2 (09:45→22:52)
[2021-09-16] MEDS: Insulin Glargine 30 UNITS/0.3 ML VIAL SC SCH ×2 (09:45→22:52)
[2021-09-16] MEDS: Senokot S 8.6-50 MG TAB PO SCH ×2 (09:46→22:52)
[2021-09-16] MEDS: Losartan 25 MG TAB PO SCH (09:46)
[2021-09-16] MEDS: Pregabalin 50 MG CAP PO SCH ×2 (09:46→22:51)
[2021-09-16] MEDS: Polyethylene Glycol 3350 17 GM Packet PO SCH (09:47)
[2021-09-16] MEDS: Silver Sulfadiazine 50 GM TUBE TOP SCH ×2 (09:49→22:53)
[2021-09-16 16:16] LABS: Bacteria/HPF 3+ HPF (None Seen); Bilirubin Negative (Negative); Blood, Urine Negative (Negative); Clarity Clear (Clear); Glucose, Urine (Dipstick) 500 mg/dL (Negative); Ketone, Urine Negative (Negative); Leukocyte 25 Leu/uL (Negative); Nitrite 2+ (Negative); Protein, Urine (Dipstick) Negative (Neg-Trace); RBC/HPF 0-3 HPF (0-3); Specific Gravity, Urine 1.012 (1.002-1.036); Squamous Epithelial 0-3 HPF (0-3); Urobilinogen Normal mg/dL (Less than 2); pH, Urine 6.5 (5.0-9.0)
[2021-09-16] MEDS: HumaLOG 300 UNITS/3 ML VIAL SC PRN (16:59)
[2021-09-16] MEDS: cefTRIAXone\\ROCEPHIN 1 GM in Sodium Chloride 0.9% 100 ML IVPB SCH (19:05)
[2021-09-16] MEDS: Amlodipine 10 MG TAB PO SCH (22:51)
[2021-09-17] MEDS: cloNIDine 0.2 MG TAB PO SCH ×4 (00:32→17:27)
[2021-09-17] MEDS: Acetaminophen 325 MG TAB PO SCH ×4 (00:33→17:26)
[2021-09-17] MEDS: traMADol HCl 50 MG TAB PO SCH ×4 (00:33→17:27)
[2021-09-17] MEDS: Tamsulosin HCl 0.4 MG CAP PO SCH (05:13)
[2021-09-17 05:59] LABS: #Eosinphils 0.2 thou/uL (0.0-0.7); #Lymphocytes 0.9 thou/uL (1.20-3.40); #Monocytes 0.6 thou/uL (0.11-0.59); #Neutrophils 5.5 thou/uL (1.40-6.50); %Basophils 0.1 % (0.0-1.0); %Eosinophils 2.2 % (0.0-10.0); %Lymphocytes 13.1 % (21.0-51.0); %Monocytes 7.8 % (0.0-10.0); %Neutrophils 76.8 % (42.0-75.0); Hemoglobin 10.5 g/dL (14.0-18.0); Mean Corpuscular HGB CONC 32.1 g/dL (32.0-36.0); Mean Corpuscular Hemoglobin 30.4 pg (27.0-31.0); Mean Corpuscular Volume 94.6 fL (78.0-98.0); Mean Platelet Volume 6.5 fL (7.4-10.4); Platelet Count 308 thou/uL (130-400); RBC Distribution Width 12.5 % (11.5-14.5); Red Blood Cell (RBC) Count 3.44 mill/uL (4.70-6.10); White Blood Cell (WBC) Count 7.2 thou/uL (4.8-10.8)
[2021-09-17 06:16] LABS: Anion Gap 14 mmol/L (10-20); BUN (Urea Nitrogen) 9 mg/dL (8.4-25.7); Calc. Creatinine Clearance 185 mL/min (70-130); Calcium 8.4 mg/dL (7.8-10.44); Carbon Dioxide 30 mmol/L (22-29); Chloride 96 mmol/L (98-107); Estimated GFR 102; Glucose 181 mg/dL (70-105); Magnesium 1.4 mg/dL (1.6-2.6); Phosphorus 2.6 mg/dL (2.3-4.7); Potassium 3.5 mmol/L (3.5-5.1); Sodium 136 mmol/L (136-145)
[2021-09-17] MEDS: Losartan 25 MG TAB PO SCH (10:09)
[2021-09-17] MEDS: metFORMIN 500 MG TAB PO SCH (10:12)
[2021-09-17] MEDS: Pregabalin 50 MG CAP PO SCH ×2 (10:13→20:41)
[2021-09-17] MEDS: Senokot S 8.6-50 MG TAB PO SCH ×2 (10:14→20:42)
[2021-09-17] MEDS: Enoxaparin Sodium 30 MG/0.3 ML SYRINGE SC SCH ×2 (10:15→20:41)
[2021-09-17] MEDS: Insulin Glargine 30 UNITS/0.3 ML VIAL SC SCH ×2 (10:17→20:42)
[2021-09-17] MEDS: Polyethylene Glycol 3350 17 GM Packet PO SCH (10:18)
[2021-09-17] MEDS: Silver Sulfadiazine 50 GM TUBE TOP SCH ×2 (10:18→20:42)
[2021-09-17] MEDS: cefTRIAXone\\ROCEPHIN 1 GM in Sodium Chloride 0.9% 100 ML IVPB SCH (17:26)
[2021-09-17] MEDS: Amlodipine 10 MG TAB PO SCH (20:41)
[2021-09-18] MEDS: Acetaminophen 325 MG TAB PO SCH ×5 (00:36→23:42)
[2021-09-18] MEDS: traMADol HCl 50 MG TAB PO SCH ×5 (00:36→23:42)
[2021-09-18] MEDS: cloNIDine 0.2 MG TAB PO SCH ×5 (00:37→23:43)
[2021-09-18] MEDS: Tamsulosin HCl 0.4 MG CAP PO SCH (05:30)
[2021-09-18] MEDS: metFORMIN 500 MG TAB PO SCH (08:01)
[2021-09-18] MEDS: Senokot S 8.6-50 MG TAB PO SCH ×2 (08:02→20:49)
[2021-09-18] MEDS: Pregabalin 50 MG CAP PO SCH ×2 (08:02→20:47)
[2021-09-18] MEDS: Insulin Glargine 30 UNITS/0.3 ML VIAL SC SCH ×2 (08:02→20:48)
[2021-09-18] MEDS: Polyethylene Glycol 3350 17 GM Packet PO SCH (08:04)
[2021-09-18] MEDS: Enoxaparin Sodium 30 MG/0.3 ML SYRINGE SC SCH ×2 (08:05→20:48)
[2021-09-18] MEDS: Silver Sulfadiazine 50 GM TUBE TOP SCH ×2 (08:13→20:49)
[2021-09-18] MEDS: Losartan 25 MG TAB PO SCH (08:15)
[2021-09-18] MEDS: HumaLOG 300 UNITS/3 ML VIAL SC PRN (12:18)
[2021-09-18] MEDS: cefTRIAXone\\ROCEPHIN 1 GM in Sodium Chloride 0.9% 100 ML IVPB SCH (17:36)
[2021-09-18] MEDS: Amlodipine 10 MG TAB PO SCH (20:48)
[2021-09-19] MEDS: traMADol HCl 50 MG TAB PO SCH ×3 (05:02→17:43)
[2021-09-19] MEDS: Acetaminophen 325 MG TAB PO SCH ×3 (05:03→17:43)
[2021-09-19] MEDS: cloNIDine 0.2 MG TAB PO SCH ×3 (05:03→17:42)
[2021-09-19] MEDS: Tamsulosin HCl 0.4 MG CAP PO SCH (05:04)
[2021-09-19] MEDS: Enoxaparin Sodium 30 MG/0.3 ML SYRINGE SC SCH ×2 (08:09→20:33)
[2021-09-19] MEDS: metFORMIN 500 MG TAB PO SCH (08:09)
[2021-09-19] MEDS: Losartan 25 MG TAB PO SCH (08:10)
[2021-09-19] MEDS: Pregabalin 50 MG CAP PO SCH ×2 (08:10→20:33)
[2021-09-19] MEDS: Insulin Glargine 30 UNITS/0.3 ML VIAL SC SCH ×2 (08:10→20:34)
[2021-09-19] MEDS: Senokot S 8.6-50 MG TAB PO SCH ×2 (08:11→20:34)
[2021-09-19] MEDS: Polyethylene Glycol 3350 17 GM Packet PO SCH (08:11)
[2021-09-19] MEDS: Silver Sulfadiazine 50 GM TUBE TOP SCH ×2 (08:22→20:35)
[2021-09-19] MEDS: HumaLOG 300 UNITS/3 ML VIAL SC PRN ×2 (17:44→20:59)
[2021-09-19] MEDS ORDERED: Cyclobenzaprine 10 MG TAB PO PRN (18:51)
[2021-09-19] MEDS: traMADol HCl 50 MG TAB PO PRN (20:32)
[2021-09-19] MEDS: Amlodipine 10 MG TAB PO SCH (20:33)
[2021-09-20] MEDS: cloNIDine 0.2 MG TAB PO SCH ×5 (00:03→23:39)
[2021-09-20] MEDS: Acetaminophen 325 MG TAB PO SCH ×5 (00:03→23:38)
[2021-09-20] MEDS: traMADol HCl 50 MG TAB PO SCH ×5 (00:04→23:37)
[2021-09-20] MEDS: Tamsulosin HCl 0.4 MG CAP PO SCH (05:39)
[2021-09-20] MEDS: Insulin Glargine 30 UNITS/0.3 ML VIAL SC SCH ×2 (09:01→20:53)
[2021-09-20] MEDS: metFORMIN 500 MG TAB PO SCH (09:02)
[2021-09-20] MEDS: Enoxaparin Sodium 30 MG/0.3 ML SYRINGE SC SCH ×2 (09:02→20:54)
[2021-09-20] MEDS: Pregabalin 50 MG CAP PO SCH ×2 (09:02→20:53)
[2021-09-20] MEDS: Senokot S 8.6-50 MG TAB PO SCH ×2 (09:03→20:54)
[2021-09-20] MEDS: Nitrofurantoin Monohyd/M-Cryst 100 MG CAP PO SCH ×2 (09:03→20:53)
[2021-09-20] MEDS: Polyethylene Glycol 3350 17 GM Packet PO SCH (09:04)
[2021-09-20] MEDS: Silver Sulfadiazine 50 GM TUBE TOP SCH ×2 (09:04→20:54)
[2021-09-20] MEDS: Losartan 25 MG TAB PO SCH (09:17)
[2021-09-20] MEDS: HumaLOG 300 UNITS/3 ML VIAL SC PRN ×3 (12:46→21:38)
[2021-09-20] MEDS: Amlodipine 10 MG TAB PO SCH (20:53)
[2021-09-21] MEDS: Acetaminophen 325 MG TAB PO SCH ×4 (05:27→23:52)
[2021-09-21] MEDS: cloNIDine 0.2 MG TAB PO SCH ×2 (05:27→22:24)
[2021-09-21] MEDS: traMADol HCl 50 MG TAB PO SCH ×4 (05:28→23:52)
[2021-09-21] MEDS: Tamsulosin HCl 0.4 MG CAP PO SCH (05:29)
[2021-09-21] MEDS ORDERED: traMADol HCl 50 MG TAB PO PRN (08:24)
[2021-09-21] MEDS: Enoxaparin Sodium 30 MG/0.3 ML SYRINGE SC SCH ×2 (09:00→21:15)
[2021-09-21] MEDS: Losartan 25 MG TAB PO SCH (09:02)
[2021-09-21] MEDS: Pregabalin 50 MG CAP PO SCH ×2 (09:03→21:13)
[2021-09-21] MEDS: Nitrofurantoin Monohyd/M-Cryst 100 MG CAP PO SCH ×2 (09:03→21:14)
[2021-09-21] MEDS: Senokot S 8.6-50 MG TAB PO SCH ×2 (09:03→21:14)
[2021-09-21] MEDS: metFORMIN 500 MG TAB PO SCH (09:03)
[2021-09-21] MEDS: Polyethylene Glycol 3350 17 GM Packet PO SCH (09:03)
[2021-09-21] MEDS: Silver Sulfadiazine 50 GM TUBE TOP SCH ×2 (09:04→22:25)
[2021-09-21] MEDS: Insulin Glargine 30 UNITS/0.3 ML VIAL SC SCH ×2 (09:13→21:15)
[2021-09-21 09:17] LABS: Anion Gap 14 mmol/L (10-20); BUN (Urea Nitrogen) 14 mg/dL (8.4-25.7); Calc. Creatinine Clearance 171 mL/min (70-130); Calcium 8.6 mg/dL (7.8-10.44); Carbon Dioxide 28 mmol/L (22-29); Chloride 96 mmol/L (98-107); Estimated GFR 95; Glucose 253 mg/dL (70-105); Magnesium 1.6 mg/dL (1.6-2.6); Potassium 3.6 mmol/L (3.5-5.1); Sodium 134 mmol/L (136-145)
[2021-09-21] MEDS: HumaLOG 300 UNITS/3 ML VIAL SC PRN ×2 (12:00→17:42)
[2021-09-21] MEDS: Amlodipine 10 MG TAB PO SCH (22:24)
[2021-09-22] MEDS: traMADol HCl 50 MG TAB PO SCH ×4 (05:57→23:43)
[2021-09-22] MEDS: Acetaminophen 325 MG TAB PO SCH ×4 (05:57→23:43)
[2021-09-22] MEDS: Tamsulosin HCl 0.4 MG CAP PO SCH (05:57)
[2021-09-22] MEDS: cloNIDine 0.2 MG TAB PO SCH ×2 (09:45→20:38)
[2021-09-22] MEDS: Pregabalin 50 MG CAP PO SCH ×2 (09:45→20:38)
[2021-09-22] MEDS: Nitrofurantoin Monohyd/M-Cryst 100 MG CAP PO SCH ×2 (09:45→20:39)
[2021-09-22] MEDS: Senokot S 8.6-50 MG TAB PO SCH ×2 (09:45→20:39)
[2021-09-22] MEDS: Enoxaparin Sodium 30 MG/0.3 ML SYRINGE SC SCH ×2 (09:46→20:40)
[2021-09-22] MEDS: metFORMIN 500 MG TAB PO SCH (09:46)
[2021-09-22] MEDS: Insulin Glargine 30 UNITS/0.3 ML VIAL SC SCH ×2 (09:53→20:39)
[2021-09-22] MEDS: Losartan 25 MG TAB PO SCH (10:48)
[2021-09-22] MEDS: Polyethylene Glycol 3350 17 GM Packet PO SCH (10:49)
[2021-09-22] MEDS: Silver Sulfadiazine 50 GM TUBE TOP SCH ×2 (10:50→20:45)
[2021-09-22] MEDS: HumaLOG 300 UNITS/3 ML VIAL SC PRN (13:10)
[2021-09-22] MEDS ORDERED: Calcium Carbonate 500 MG ChewTAB PO PRN (20:28)
[2021-09-22] MEDS: Amlodipine 10 MG TAB PO SCH (20:39)
[2021-09-23] MEDS: Acetaminophen 325 MG TAB PO SCH ×3 (05:51→17:35)
[2021-09-23] MEDS: traMADol HCl 50 MG TAB PO SCH ×3 (05:52→17:36)
[2021-09-23] MEDS: Tamsulosin HCl 0.4 MG CAP PO SCH (05:52)
[2021-09-23] MEDS: HumaLOG 300 UNITS/3 ML VIAL SC PRN (05:56)
[2021-09-23] MEDS: Losartan 25 MG TAB PO SCH (09:56)
[2021-09-23] MEDS: metFORMIN 500 MG TAB PO SCH (09:56)
[2021-09-23] MEDS: Pregabalin 50 MG CAP PO SCH ×2 (09:57→21:36)
[2021-09-23] MEDS: Nitrofurantoin Monohyd/M-Cryst 100 MG CAP PO SCH ×2 (09:57→21:35)
[2021-09-23] MEDS: Senokot S 8.6-50 MG TAB PO SCH ×2 (09:57→21:36)
[2021-09-23] MEDS: Insulin Glargine 30 UNITS/0.3 ML VIAL SC SCH ×2 (09:59→21:35)
[2021-09-23] MEDS: Enoxaparin Sodium 30 MG/0.3 ML SYRINGE SC SCH ×2 (10:00→21:35)
[2021-09-23] MEDS: Polyethylene Glycol 3350 17 GM Packet PO SCH (10:08)
[2021-09-23] MEDS: Silver Sulfadiazine 50 GM TUBE TOP SCH ×2 (10:09→21:40)
[2021-09-23] MEDS: Amlodipine 10 MG TAB PO SCH (21:35)
[2021-09-24] MEDS: Acetaminophen 325 MG TAB PO SCH ×4 (00:23→18:25)
[2021-09-24] MEDS: traMADol HCl 50 MG TAB PO SCH ×4 (00:24→18:26)
[2021-09-24] MEDS: HumaLOG 300 UNITS/3 ML VIAL SC PRN ×3 (00:26→18:27)
[2021-09-24] MEDS: Tamsulosin HCl 0.4 MG CAP PO SCH (05:41)
[2021-09-24] MEDS: Enoxaparin Sodium 30 MG/0.3 ML SYRINGE SC SCH ×2 (08:31→21:03)
[2021-09-24] MEDS: Insulin Glargine 30 UNITS/0.3 ML VIAL SC SCH ×2 (08:31→21:02)
[2021-09-24] MEDS: metFORMIN 500 MG TAB PO SCH (08:31)
[2021-09-24] MEDS: Nitrofurantoin Monohyd/M-Cryst 100 MG CAP PO SCH ×2 (08:32→21:03)
[2021-09-24] MEDS: Losartan 25 MG TAB PO SCH (08:32)
[2021-09-24] MEDS: Senokot S 8.6-50 MG TAB PO SCH ×2 (08:32→21:04)
[2021-09-24] MEDS: Pregabalin 50 MG CAP PO SCH ×2 (08:32→21:03)
[2021-09-24] MEDS: Silver Sulfadiazine 50 GM TUBE TOP SCH ×2 (08:33→21:04)
[2021-09-24] MEDS: Polyethylene Glycol 3350 17 GM Packet PO SCH (08:33)
[2021-09-24] MEDS: Amlodipine 10 MG TAB PO SCH (21:02)
[2021-09-25] MEDS: traMADol HCl 50 MG TAB PO SCH ×5 (00:19→23:20)
[2021-09-25] MEDS: Acetaminophen 325 MG TAB PO SCH ×5 (00:20→23:19)
[2021-09-25] MEDS: HumaLOG 300 UNITS/3 ML VIAL SC PRN ×2 (00:23→12:17)
[2021-09-25] MEDS: Tamsulosin HCl 0.4 MG CAP PO SCH (05:49)
[2021-09-25] MEDS: Enoxaparin Sodium 30 MG/0.3 ML SYRINGE SC SCH ×2 (09:28→20:30)
[2021-09-25] MEDS: Losartan 25 MG TAB PO SCH (09:32)
[2021-09-25] MEDS: Insulin Glargine 30 UNITS/0.3 ML VIAL SC SCH ×2 (09:32→20:30)
[2021-09-25] MEDS: metFORMIN 500 MG TAB PO SCH (09:33)
[2021-09-25] MEDS: Nitrofurantoin Monohyd/M-Cryst 100 MG CAP PO SCH ×2 (09:34→20:31)
[2021-09-25] MEDS: Pregabalin 50 MG CAP PO SCH ×2 (09:35→20:31)
[2021-09-25] MEDS: Polyethylene Glycol 3350 17 GM Packet PO SCH (09:37)
[2021-09-25] MEDS: Senokot S 8.6-50 MG TAB PO SCH ×2 (09:37→20:31)
[2021-09-25] MEDS: Silver Sulfadiazine 50 GM TUBE TOP SCH ×2 (09:38→20:31)
[2021-09-25] MEDS: Amlodipine 10 MG TAB PO SCH (20:30)
[2021-09-26] MEDS: Acetaminophen 325 MG TAB PO SCH ×4 (05:37→23:58)
[2021-09-26] MEDS: traMADol HCl 50 MG TAB PO SCH ×4 (05:38→23:58)
[2021-09-26] MEDS: Tamsulosin HCl 0.4 MG CAP PO SCH (05:38)
[2021-09-26 05:39] VITALS: BMI 42.6
[2021-09-26] MEDS: Labetalol HCl 100 MG/20 ML VIAL SLOW IVP PRN (05:46)
[2021-09-26] MEDS: Enoxaparin Sodium 30 MG/0.3 ML SYRINGE SC SCH ×2 (08:42→19:51)
[2021-09-26] MEDS: Insulin Glargine 30 UNITS/0.3 ML VIAL SC SCH ×2 (08:43→19:51)
[2021-09-26] MEDS: Senokot S 8.6-50 MG TAB PO SCH ×2 (08:44→19:53)
[2021-09-26] MEDS: Losartan 25 MG TAB PO SCH (08:44)
[2021-09-26] MEDS: Pregabalin 50 MG CAP PO SCH ×2 (08:44→19:52)
[2021-09-26] MEDS: metFORMIN 500 MG TAB PO SCH (08:44)
[2021-09-26] MEDS: Nitrofurantoin Monohyd/M-Cryst 100 MG CAP PO SCH ×2 (08:44→19:52)
[2021-09-26] MEDS: Silver Sulfadiazine 50 GM TUBE TOP SCH ×2 (08:45→19:54)
[2021-09-26] MEDS: Polyethylene Glycol 3350 17 GM Packet PO SCH (08:45)
[2021-09-26] MEDS: HumaLOG 300 UNITS/3 ML VIAL SC PRN (12:51)
[2021-09-26] MEDS: Amlodipine 10 MG TAB PO SCH (19:50)
[2021-09-27] MEDS: Tamsulosin HCl 0.4 MG CAP PO SCH (05:09)
[2021-09-27] MEDS: traMADol HCl 50 MG TAB PO SCH ×3 (05:10→19:41)
[2021-09-27] MEDS: Acetaminophen 325 MG TAB PO SCH ×3 (05:10→19:42)
[2021-09-27] MEDS: Losartan 25 MG TAB PO SCH (08:39)
[2021-09-27] MEDS: Enoxaparin Sodium 30 MG/0.3 ML SYRINGE SC SCH (08:39)
[2021-09-27] MEDS: Nitrofurantoin Monohyd/M-Cryst 100 MG CAP PO SCH (08:39)
[2021-09-27] MEDS: metFORMIN 500 MG TAB PO SCH (08:40)
[2021-09-27] MEDS: Pregabalin 50 MG CAP PO SCH (08:40)
[2021-09-27] MEDS: Insulin Glargine 30 UNITS/0.3 ML VIAL SC SCH (08:41)
[2021-09-27] MEDS: Polyethylene Glycol 3350 17 GM Packet PO SCH (12:48)
[2021-09-27] MEDS: Senokot S 8.6-50 MG TAB PO SCH (12:48)
[2021-09-27] MEDS: Silver Sulfadiazine 50 GM TUBE TOP SCH (12:48)
[2021-09-27 16:23] VITALS: BP 151/87; TEMP 98.9
== END 2021-09-27 20:00 | DRG 459 ==
LOC: ERS 17:07 → SDC/OP 19:17 → SURG A 23:22 → CCU 09-10 00:16 → IMCU/EMU 09-11 01:57 → SURG A 09-12 12:56
PROVIDERS: ADMIT Student in an Organized Health Care Education/Training Program; ATTEND Surgery
PROC: 0RG6071 Fusion of Thoracic Vertebral Joint with Autologous Tissue Substitute, Posterior Approach, Posterior Column, Open Approach (ICD-10-PCS; principal; 2021-09-07)
PROC: 0RGA071 Fusion of Thoracolumbar Vertebral Joint with Autologous Tissue Substitute, Posterior Approach, Posterior Column, Open Approach (ICD-10-PCS; 2021-09-07)
PROC: 30233N1 Transfusion of Nonautologous Red Blood Cells into Peripheral Vein, Percutaneous Approach (ICD-10-PCS; 2021-09-07)
PROC: 0HQLXZZ Repair Left Lower Leg Skin, External Approach (ICD-10-PCS; 2021-09-07)
PROC: 5A09457 Assistance with Respiratory Ventilation, 24-96 Consecutive Hours, Continuous Positive Airway Pressure (ICD-10-PCS; 2021-09-10)
DX: S22.082A Unstable burst fracture of T11-T12 vertebra, initial encounter for closed fracture (principal); J96.01 Acute respiratory failure with hypoxia; J96.02 Acute respiratory failure with hypercapnia; S36.039A Unspecified laceration of spleen, initial encounter; S36.892A Contusion of other intra-abdominal organs, initial encounter; E87.2 Acidosis; N17.9 Acute kidney failure, unspecified; K56.7 Ileus, unspecified; N39.0 Urinary tract infection, site not specified; Z20.822 Contact with and (suspected) exposure to COVID-19; M48.14 Ankylosing hyperostosis [Forestier], thoracic region; S81.011A Laceration without foreign body, right knee, initial encounter; S81.812A Laceration without foreign body, left lower leg, initial encounter; I12.9 Hypertensive chronic kidney disease with stage 1 through stage 4 chronic kidney disease, or unspecified chronic kidney disease; E11.22 Type 2 diabetes mellitus with diabetic chronic kidney disease; R33.9 Retention of urine, unspecified; B96.20 Unspecified Escherichia coli [E. coli] as the cause of diseases classified elsewhere; V49.9XXA Car occupant (driver) (passenger) injured in unspecified traffic accident, initial encounter; Z79.84 Long term (current) use of oral hypoglycemic drugs; Z79.4 Long term (current) use of insulin; Z79.899 Other long term (current) drug therapy
CPT/HCPCS: 36415; 36416; 36430; 36600; 70450; 71045; 71260; 72125; 72170; 74018; 74022; 74177; 76000; 80048; 80053; 80076; 81001; 82805; 83036; 83605; 83690; 83735; 83880; 84100; 84484; 85025; 85384; 85610; 85730; 86850; 86900; 86901; 87040; 87077; 87086; 87186; 90471; 90715; 93005; 93010; 96374; 97139; C1713; C1768; C1889; G0390; J0360; J0690; J0696; J0744; J1630; J1650; J1815; J1940; J2270; J2370; J2405; J2704; J2710; J2765; J3010; J3370; J3475; J3490; J7050; P9016; P9045; Q9966; S0020; U0002; U0003; U0005

== ENCOUNTER 2021-10-08 20:53 | Inpatient (IN) | payer OTHER ==
[~2021-10-08 20:53] MED LIST changes: -ISOVUE-370 76%-LOCM 1 ML ONE; +Iopamidol-370 76% 500 ML 1 ML ONE
[2021-10-08] MEDS ORDERED: Piperacillin/Tazobactam 3.375 GM VIAL ONE (21:17)
[2021-10-08 21:22] LABS: #Lymphocytes 1.2 thou/uL (1.20-3.40); #Neutrophils 13.3 thou/uL (1.40-6.50); %Basophils 0.1 % (0.0-1.0); %Eosinophils 0.1 % (0.0-10.0); %Lymphocytes 7.5 % (21.0-51.0); %Monocytes 6.3 % (0.0-10.0); Hemoglobin 11.2 g/dL (14.0-18.0); Mean Corpuscular HGB CONC 32.4 g/dL (32.0-36.0); Mean Corpuscular Hemoglobin 28.5 pg (27.0-31.0); Mean Platelet Volume 6.6 fL (7.4-10.4); Platelet Count 362 thou/uL (130-400); RBC Distribution Width 13.9 % (11.5-14.5); Red Blood Cell (RBC) Count 3.94 mill/uL (4.70-6.10); White Blood Cell (WBC) Count 15.5 thou/uL (4.8-10.8)
[2021-10-08] MEDS ORDERED: Vancomycin 1 GM/200 ML BAG ONE (21:32)
[2021-10-08 21:40] LABS: ALT (SGPT) 15 U/L (8-55); AST (SGOT) 11 U/L (5-34); Albumin 3.5 g/dL (3.5-5.0); Alkaline Phosphatase 80 U/L (40-110); Anion Gap 17 mmol/L (10-20); BUN (Urea Nitrogen) 14 mg/dL (8.4-25.7); Bilirubin, Total 0.7 mg/dL (0.2-1.2); Calc. Creatinine Clearance 0 mL/min (70-130); Carbon Dioxide 23 mmol/L (22-29); Chloride 94 mmol/L (98-107); Estimated GFR 59; Globulin 4.5 g/dL (2.4-3.5); Glucose 235 mg/dL (70-105); Lipase 23 U/L (8-78); Potassium 3.9 mmol/L (3.5-5.1); Sodium 130 mmol/L (136-145)
[2021-10-08 23:49] LABS: Bilirubin Negative (Negative); Blood, Urine 1+ (Negative); Clarity Clear (Clear); Glucose, Urine (Dipstick) Normal (Negative); Ketone, Urine Negative (Negative); Leukocyte 250 Leu/uL (Negative); Nitrite Negative (Negative); Protein, Urine (Dipstick) 30 mg/dL (Neg-Trace); Specific Gravity, Urine 1.018 (1.002-1.036); Urobilinogen Normal mg/dL (Less than 2)
[2021-10-09 00:07] LABS: RBC/HPF 0-3 HPF (0-3); Squamous Epithelial 0-3 HPF (0-3); WBC/HPF 0-3 HPF (0-3)
[2021-10-09 00:08] LABS: Bacteria/HPF Rare-Few HPF (None Seen)
[2021-10-09] MEDS: Sodium Chloride 0.9% 1,000 ML IV SCH ×4 (01:05→18:09)
[2021-10-09] MEDS: Acetaminophen 325 MG TAB PO PRN ×4 (01:05→12:25)
[2021-10-09] MEDS ORDERED: Ondansetron PF 4 MG/2 ML Vial IVP PRN (01:15)
[2021-10-09] MEDS ORDERED: Ondansetron ODT 4 MG TAB SL PRN (01:15)
[2021-10-09] MEDS ORDERED: Piperacillin/Tazobactam 3.375 GM in Sodium Chloride 0.9% 100 ML IVPB SCH (02:00)
[2021-10-09 03:08] VITALS: BMI 42.0
[2021-10-09] MEDS ORDERED: Acetaminophen 650 MG Suppository PR PRN (03:44)
[2021-10-09] MEDS ORDERED: Dextrose 50% Abboject 50 ML SYRINGE SLOW IVP PRN (03:47)
[2021-10-09] MEDS ORDERED: HumaLOG 300 UNITS/3 ML VIAL SC PRN (03:47)
[2021-10-09] MEDS ORDERED: Dextrose 5% in Water 1,000 ML IV PRN (03:47)
[2021-10-09 05:37] LABS: Anion Gap 16 mmol/L (10-20); BUN (Urea Nitrogen) 14 mg/dL (8.4-25.7); Calc. Creatinine Clearance 115 mL/min (70-130); Calcium 8.4 mg/dL (7.8-10.44); Carbon Dioxide 22 mmol/L (22-29); Chloride 98 mmol/L (98-107); Estimated GFR 62; Glucose 233 mg/dL (70-105); Potassium 3.8 mmol/L (3.5-5.1); Sodium 132 mmol/L (136-145)
[2021-10-09 05:51] LABS: SARS-CoV-2 NAA Rapid Test Not Detected (NotDetected)
[2021-10-09 05:52] LABS: Band 17 % (5-11); Hemoglobin 10.3 g/dL (14.0-18.0); Lymphocytes 10 % (21-51); MDiff Complete? YES; Mean Corpuscular HGB CONC 32.2 g/dL (32.0-36.0); Mean Corpuscular Hemoglobin 28.3 pg (27.0-31.0); Mean Platelet Volume 6.7 fL (7.4-10.4); Monocytes 3 % (0-10); Neutrophil 70 % (42-75); Nucleated RBC 1 % (0); Platelet Count 307 thou/uL (130-400); Platelet Morphology Comment Appears Adequate; RBC Distribution Width 13.7 % (11.5-14.5); RBC Morphology Normal; Red Blood Cell (RBC) Count 3.64 mill/uL (4.70-6.10); White Blood Cell (WBC) Count 19.2 thou/uL (4.8-10.8)
[2021-10-09] MEDS: VANCOMYCIN 1.75 GM/500 ML BAG 1.75 GM in Premix Bag 1 BAG IVPB SCH ×2 (06:12→17:35)
[2021-10-09] MEDS: HumaLOG 300 UNITS/3 ML VIAL SC PRN ×2 (08:57→12:24)
[2021-10-09] MEDS: Enoxaparin Sodium 40 MG/0.4 ML SYRINGE SC SCH (08:58)
[2021-10-09] MEDS ORDERED: Meropenem 1 GM in Sodium Chloride 0.9% 100 ML IVPB SCH (09:00)
[2021-10-09] MEDS ORDERED: Vancomycin 1 GM in Premix Bag 1 BAG IVPB SCH (09:00)
[2021-10-09] MEDS ORDERED: Polyethylene Glycol 3350 17 GM Packet PO PRN (09:22)
[2021-10-09] MEDS: Morphine 2 MG/ML VIAL SLOW IVP PRN (12:32)
[2021-10-09] MEDS ORDERED: Diazepam 5 MG TAB PO SCH (13:30)
[2021-10-09] MEDS ORDERED: Iopamidol-370 76% 500 ML 1 ML ONE (14:40)
[2021-10-09] MEDS: Meropenem 1 GM in Sodium Chloride 0.9% 100 ML IVPB SCH (16:11)
[2021-10-09] MEDS ORDERED: Ibuprofen 800 MG TAB PO SCH (16:45)
[2021-10-10] MEDS: Meropenem 1 GM in Sodium Chloride 0.9% 100 ML IVPB SCH ×3 (00:47→19:28)
[2021-10-10] MEDS: VANCOMYCIN 1.75 GM/500 ML BAG 1.75 GM in Premix Bag 1 BAG IVPB SCH (04:14)
[2021-10-10] MEDS: Ibuprofen 800 MG TAB PO PRN (04:46)
[2021-10-10] MEDS ORDERED: Sodium Chloride 0.9% 1,000 ML IV SCH (05:40)
[2021-10-10] MEDS: Sodium Chloride 0.9% 1,000 ML IV SCH ×3 (06:04→19:30)
[2021-10-10 06:13] LABS: #Monocytes 1.1 thou/uL (0.11-0.59); #Neutrophils 14.6 thou/uL (1.40-6.50); %Monocytes 6.6 % (0.0-10.0); %Neutrophils 87.3 % (42.0-75.0); Hemoglobin 10.2 g/dL (14.0-18.0); Mean Corpuscular HGB CONC 31.8 g/dL (32.0-36.0); Mean Corpuscular Hemoglobin 28.8 pg (27.0-31.0); Mean Corpuscular Volume 90.7 fL (78.0-98.0); Mean Platelet Volume 6.8 fL (7.4-10.4); Platelet Count 279 thou/uL (130-400); RBC Distribution Width 13.5 % (11.5-14.5); Red Blood Cell (RBC) Count 3.53 mill/uL (4.70-6.10); White Blood Cell (WBC) Count 16.8 thou/uL (4.8-10.8)
[2021-10-10 06:39] LABS: Anion Gap 17 mmol/L (10-20); BUN (Urea Nitrogen) 13 mg/dL (8.4-25.7); Calc. Creatinine Clearance 190 mL/min (70-130); Calcium 8.1 mg/dL (7.8-10.44); Carbon Dioxide 21 mmol/L (22-29); Chloride 103 mmol/L (98-107); Estimated GFR 105; Glucose 114 mg/dL (70-105); Potassium 3.9 mmol/L (3.5-5.1); Sodium 137 mmol/L (136-145)
[2021-10-10 06:55] LABS: Vancomycin, Trough 24.1 ug/mL
[2021-10-10] MEDS: Enoxaparin Sodium 40 MG/0.4 ML SYRINGE SC SCH (09:12)
[2021-10-10] MEDS ORDERED: Lidocaine 1% MPF 2 ML VIAL ONE (12:54)
[2021-10-10] MEDS ORDERED: Bupivacaine/Epinephrine 0.25% 30 ML VIAL ONE (13:52)
[2021-10-10] MEDS ORDERED: Bupivacaine PF 0.5% 30 ML VIAL ONE (13:53)
[2021-10-10] MEDS ORDERED: Lidocaine 1% w/Epinephrine 1:100K 20 ML VIAL ONE (13:53)
[2021-10-10] MEDS ORDERED: fentaNYL Citrate/PF 100 MCG/2 ML SYRINGE ONE ×2 (14:08→16:10)
[2021-10-10] MEDS ORDERED: Famotidine/PF 20 mg/2ml Vial ONE (14:08)
[2021-10-10] MEDS ORDERED: SUGAMMADEX SODIUM 200 MG/2 ML VIAL ONE (14:08)
[2021-10-10] MEDS ORDERED: Rocuronium Bromide 10 MG/ML (10ML VIAL) ONE (14:19)
[2021-10-10] MEDS ORDERED: Lidocaine 1% PF 5 ML VIAL ONE (14:19)
[2021-10-10] MEDS ORDERED: Metoclopramide HCl 10 MG/2 ML VIAL ONE (14:19)
[2021-10-10] MEDS ORDERED: Phenylephrine 10 MG/ML VIAL ONE (14:19)
[2021-10-10] MEDS ORDERED: Glycopyrrolate 0.2 MG/ML 5 ML SYRINGE ONE (14:19)
[2021-10-10] MEDS ORDERED: PROPOFOL 200 MG/20 ML VIAL ONE (14:19)
[2021-10-10] MEDS ORDERED: Ketorolac Tromethamine 30 MG/ML VIAL ONE (14:19)
[2021-10-10] MEDS ORDERED: Ondansetron PF 4 MG/2 ML Vial ONE (14:19)
[2021-10-10] MEDS ORDERED: Albumin 5% 1,000 ML ONE (16:25)
[2021-10-10] MEDS ORDERED: Fentanyl 100 MCG/2 ML VIAL ONE ×3 (17:25→18:13)
[2021-10-10] MEDS ORDERED: Non-Formulary Medication 1 EACH PO PRN (17:59)
[2021-10-10] MEDS ORDERED: Promethazine HCl 25 MG/ML VIAL IM/IV PRN (18:00)
[2021-10-10] MEDS ORDERED: Ondansetron HCl/PF 4 MG/2 ML Vial IVP PRN (18:00)
[2021-10-11] MEDS: Meropenem 1 GM in Sodium Chloride 0.9% 100 ML IVPB SCH ×3 (00:41→16:57)
[2021-10-11] MEDS: Sodium Chloride 0.9% 1,000 ML IV SCH ×4 (02:52→23:42)
[2021-10-11] MEDS: Morphine 2 MG/ML VIAL SLOW IVP PRN ×2 (08:51→14:34)
[2021-10-11] MEDS: Enoxaparin Sodium 40 MG/0.4 ML SYRINGE SC SCH (08:53)
[2021-10-11] MEDS: HYDROcodone/Acetaminophen 10/325 mg Tablet PO PRN (13:08)
[2021-10-11] MEDS: HumaLOG 300 UNITS/3 ML VIAL SC PRN (13:09)
[2021-10-11] MEDS: Ibuprofen 800 MG TAB PO PRN (16:57)
[2021-10-12] MEDS: Meropenem 1 GM in Sodium Chloride 0.9% 100 ML IVPB SCH ×3 (02:15→16:26)
[2021-10-12 03:43] LABS: #Lymphocytes 0.8 thou/uL (1.20-3.40); #Monocytes 0.5 thou/uL (0.11-0.59); #Neutrophils 8.6 thou/uL (1.40-6.50); %Lymphocytes 8.2 % (21.0-51.0); %Monocytes 4.7 % (0.0-10.0); %Neutrophils 87.1 % (42.0-75.0); Hemoglobin 9.3 g/dL (14.0-18.0); Mean Corpuscular HGB CONC 31.4 g/dL (32.0-36.0); Mean Corpuscular Hemoglobin 28.1 pg (27.0-31.0); Mean Corpuscular Volume 89.7 fL (78.0-98.0); Mean Platelet Volume 7.1 fL (7.4-10.4); Platelet Count 279 thou/uL (130-400); RBC Distribution Width 13.5 % (11.5-14.5); Red Blood Cell (RBC) Count 3.31 mill/uL (4.70-6.10); White Blood Cell (WBC) Count 9.9 thou/uL (4.8-10.8)
[2021-10-12 04:01] LABS: Anion Gap 12 mmol/L (10-20); BUN (Urea Nitrogen) 16 mg/dL (8.4-25.7); Calc. Creatinine Clearance 197 mL/min (70-130); Calcium 8.5 mg/dL (7.8-10.44); Carbon Dioxide 26 mmol/L (22-29); Chloride 103 mmol/L (98-107); Estimated GFR 106; Glucose 239 mg/dL (70-105); Potassium 3.7 mmol/L (3.5-5.1); Sodium 137 mmol/L (136-145)
[2021-10-12] MEDS: Ibuprofen 800 MG TAB PO PRN ×3 (06:21→21:30)
[2021-10-12] MEDS: HumaLOG 300 UNITS/3 ML VIAL SC PRN (06:22)
[2021-10-12] MEDS: Morphine 2 MG/ML VIAL SLOW IVP PRN ×2 (06:22→21:30)
[2021-10-12] MEDS: Sodium Chloride 0.9% 1,000 ML IV SCH ×3 (06:23→16:26)
[2021-10-12] MEDS: Enoxaparin Sodium 40 MG/0.4 ML SYRINGE SC SCH (09:19)
[2021-10-12] MEDS ORDERED: Amlodipine 10 MG TAB PO SCH (14:00)
[2021-10-12] MEDS ORDERED: Losartan 25 MG TAB PO SCH (14:00)
[2021-10-12] MEDS: Pregabalin 50 MG CAP PO SCH (21:30)
[2021-10-13] MEDS: Meropenem 1 GM in Sodium Chloride 0.9% 100 ML IVPB SCH ×4 (01:30→23:46)
[2021-10-13 04:24] LABS: Anion Gap 15 mmol/L (10-20); BUN (Urea Nitrogen) 14 mg/dL (8.4-25.7); Calc. Creatinine Clearance 199 mL/min (70-130); Calcium 8.9 mg/dL (7.8-10.44); Carbon Dioxide 29 mmol/L (22-29); Chloride 96 mmol/L (98-107); Estimated GFR 106; Glucose 188 mg/dL (70-105); Potassium 3.5 mmol/L (3.5-5.1); Sodium 136 mmol/L (136-145)
[2021-10-13 05:15] LABS: Band 11 % (5-11); Eosinophils 1 % (0-10); Hemoglobin 11.4 g/dL (14.0-18.0); Lymphocytes 19 % (21-51); MDiff Complete? YES; Mean Corpuscular HGB CONC 33.2 g/dL (32.0-36.0); Mean Corpuscular Hemoglobin 28.9 pg (27.0-31.0); Mean Corpuscular Volume 87.2 fL (78.0-98.0); Mean Platelet Volume 6.8 fL (7.4-10.4); Metamyelocyte 1 % (0-0); Monocytes 6 % (0-10); Myelocyte 2 % (0-0); Neutrophil 60 % (42-75); Platelet Count 330 thou/uL (130-400); Platelet Morphology Comment Appears Adequate; RBC Distribution Width 13.8 % (11.5-14.5); RBC Morphology Normal; Red Blood Cell (RBC) Count 3.94 mill/uL (4.70-6.10); White Blood Cell (WBC) Count 7.3 thou/uL (4.8-10.8)
[2021-10-13] MEDS: Tamsulosin HCl 0.4 MG CAP PO SCH (05:26)
[2021-10-13] MEDS: HYDROcodone/Acetaminophen 10/325 mg Tablet PO PRN (05:26)
[2021-10-13] MEDS: Amlodipine 10 MG TAB PO SCH (09:01)
[2021-10-13] MEDS: Losartan 25 MG TAB PO SCH (09:01)
[2021-10-13] MEDS: Pregabalin 50 MG CAP PO SCH ×2 (09:02→20:23)
[2021-10-13] MEDS: Enoxaparin Sodium 40 MG/0.4 ML SYRINGE SC SCH (09:04)
[2021-10-13] MEDS: Polyethylene Glycol 3350 17 GM Packet PO SCH (09:05)
[2021-10-13] MEDS ORDERED: Insulin Glargine 30 UNITS/0.3 ML VIAL SC SCH (09:45)
[2021-10-13] MEDS: HumaLOG 300 UNITS/3 ML VIAL SC PRN (12:47)
[2021-10-13] MEDS: Ibuprofen 800 MG TAB PO PRN (12:47)
[2021-10-13] MEDS ORDERED: traMADol HCl 50 MG TAB PO PRN (14:42)
[2021-10-13] MEDS: hydrALAZINE 25 MG TAB PO SCH ×2 (16:25→20:23)
[2021-10-13] MEDS: Acetaminophen 325 MG TAB PO SCH ×2 (16:25→20:22)
[2021-10-13] MEDS: traMADol HCl 50 MG TAB PO SCH ×2 (17:53→23:46)
[2021-10-14] MEDS: Acetaminophen 325 MG TAB PO SCH ×4 (03:41→21:41)
[2021-10-14] MEDS: traMADol HCl 50 MG TAB PO SCH ×3 (05:26→17:07)
[2021-10-14] MEDS: Tamsulosin HCl 0.4 MG CAP PO SCH (05:26)
[2021-10-14 06:48] LABS: #Eosinphils 0.2 thou/uL (0.0-0.7); #Lymphocytes 1.2 thou/uL (1.20-3.40); #Monocytes 0.6 thou/uL (0.11-0.59); #Neutrophils 6.1 thou/uL (1.40-6.50); %Basophils 0.4 % (0.0-1.0); %Eosinophils 2.6 % (0.0-10.0); %Monocytes 6.7 % (0.0-10.0); %Neutrophils 75.3 % (42.0-75.0); Hemoglobin 10.7 g/dL (14.0-18.0); Mean Corpuscular HGB CONC 32.1 g/dL (32.0-36.0); Mean Corpuscular Volume 87.2 fL (78.0-98.0); Mean Platelet Volume 6.7 fL (7.4-10.4); Platelet Count 404 thou/uL (130-400); RBC Distribution Width 13.8 % (11.5-14.5); Red Blood Cell (RBC) Count 3.83 mill/uL (4.70-6.10); White Blood Cell (WBC) Count 8.2 thou/uL (4.8-10.8)
[2021-10-14 07:07] LABS: Anion Gap 14 mmol/L (10-20); BUN (Urea Nitrogen) 13 mg/dL (8.4-25.7); Calc. Creatinine Clearance 197 mL/min (70-130); Carbon Dioxide 31 mmol/L (22-29); Chloride 95 mmol/L (98-107); Estimated GFR 106; Glucose 189 mg/dL (70-105); Potassium 3.5 mmol/L (3.5-5.1); Sodium 136 mmol/L (136-145)
[2021-10-14] MEDS ORDERED: Insulin Glargine 30 UNITS/0.3 ML VIAL SC SCH ×3 (09:00→13:45)
[2021-10-14] MEDS: Pregabalin 50 MG CAP PO SCH ×2 (09:46→21:41)
[2021-10-14] MEDS: Polyethylene Glycol 3350 17 GM Packet PO SCH (09:46)
[2021-10-14] MEDS: Enoxaparin Sodium 40 MG/0.4 ML SYRINGE SC SCH (09:46)
[2021-10-14] MEDS: HumaLOG 300 UNITS/3 ML VIAL SC PRN (11:34)
[2021-10-14] MEDS: Amlodipine 10 MG TAB PO SCH (11:39)
[2021-10-14] MEDS: hydrALAZINE 25 MG TAB PO SCH (11:40)
[2021-10-14] MEDS: Losartan 25 MG TAB PO SCH ×2 (11:40→13:11)
[2021-10-14] MEDS ORDERED: NIFEdipine XL 90 MG TAB PO SCH (12:15)
[2021-10-15] MEDS: traMADol HCl 50 MG TAB PO SCH ×4 (00:06→17:12)
[2021-10-15] MEDS: Acetaminophen 325 MG TAB PO SCH ×3 (03:30→14:28)
[2021-10-15 05:06] LABS: Anion Gap 12 mmol/L (10-20); BUN (Urea Nitrogen) 18 mg/dL (8.4-25.7); Calc. Creatinine Clearance 197 mL/min (70-130); Carbon Dioxide 30 mmol/L (22-29); Chloride 96 mmol/L (98-107); Estimated GFR 106; Glucose 165 mg/dL (70-105); Potassium 3.3 mmol/L (3.5-5.1); Sodium 135 mmol/L (136-145)
[2021-10-15] MEDS: Tamsulosin HCl 0.4 MG CAP PO SCH (05:48)
[2021-10-15 06:18] LABS: Band 6 % (5-11); Eosinophils 1 % (0-10); Hemoglobin 10.4 g/dL (14.0-18.0); Lymphocytes 30 % (21-51); MDiff Complete? YES; Mean Corpuscular Volume 87.5 fL (78.0-98.0); Mean Platelet Volume 6.6 fL (7.4-10.4); Metamyelocyte 1 % (0-0); Monocytes 6 % (0-10); Myelocyte 5 % (0-0); Neutrophil 50 % (42-75); Platelet Count 387 thou/uL (130-400); RBC Distribution Width 14.2 % (11.5-14.5); Red Blood Cell (RBC) Count 3.72 mill/uL (4.70-6.10); White Blood Cell (WBC) Count 7.8 thou/uL (4.8-10.8)
[2021-10-15 07:07] VITALS: BP 123/75; TEMP 98.7
[2021-10-15] MEDS: Enoxaparin Sodium 40 MG/0.4 ML SYRINGE SC SCH (07:53)
[2021-10-15] MEDS: Losartan 25 MG TAB PO SCH (07:55)
[2021-10-15] MEDS: Pregabalin 50 MG CAP PO SCH (07:55)
[2021-10-15] MEDS: Polyethylene Glycol 3350 17 GM Packet PO SCH (07:57)
[2021-10-15] MEDS: HumaLOG 300 UNITS/3 ML VIAL SC PRN (08:02)
[2021-10-15] MEDS ORDERED: Potassium Chloride 20 MEQ TAB PO SCH (08:45)
[2021-10-15] MEDS ORDERED: Insulin Glargine 30 UNITS/0.3 ML VIAL SC SCH (09:00)
[2021-10-15] MEDS ORDERED: NIFEdipine XL 90 MG TAB PO SCH (09:00)
== END 2021-10-15 18:17 | disposition home or self-care (01) | DRG 853 ==
LOC: ERS 20:53 → T4-A 22:49 → IMCU/EMU 10-09 06:34 → MSONC 10-14 15:29
PROVIDERS: ADMIT Internal Medicine; ATTEND Internal Medicine
PROC: 3E03329 Introduction of Other Anti-infective into Peripheral Vein, Percutaneous Approach (ICD-10-PCS; 2021-10-09)
PROC: 0DB84ZZ Excision of Small Intestine, Percutaneous Endoscopic Approach (ICD-10-PCS; principal; 2021-10-10)
PROC: 0DN84ZZ Release Small Intestine, Percutaneous Endoscopic Approach (ICD-10-PCS; 2021-10-10)
DX: A41.9 Sepsis, unspecified organism (principal); K65.1 Peritoneal abscess; K63.1 Perforation of intestine (nontraumatic); Z68.41 Body mass index [BMI] 40.0-44.9, adult; D62 Acute posthemorrhagic anemia; E66.01 Morbid (severe) obesity due to excess calories; Z20.822 Contact with and (suspected) exposure to COVID-19; K66.0 Peritoneal adhesions (postprocedural) (postinfection); I10 Essential (primary) hypertension; F17.220 Nicotine dependence, chewing tobacco, uncomplicated; N20.0 Calculus of kidney; N40.0 Benign prostatic hyperplasia without lower urinary tract symptoms; E11.65 Type 2 diabetes mellitus with hyperglycemia; E87.6 Hypokalemia; Z79.4 Long term (current) use of insulin; Z28.21 Immunization not carried out because of patient refusal; Z98.890 Other specified postprocedural states; Z98.1 Arthrodesis status; Z79.899 Other long term (current) drug therapy; Z79.84 Long term (current) use of oral hypoglycemic drugs; Z87.442 Personal history of urinary calculi
CPT/HCPCS: 36415; 36416; 71045; 71275; 72070; 72100; 74177; 80048; 80053; 80202; 81003; 81015; 83605; 83690; 85025; 85652; 86140; 87040; 87086; 88307; 93005; 93306; 96365; 96375; 97139; C1776; J1642; J1650; J1815; J1885; J2185; J2270; J2370; J2405; J2543; J2704; J2710; J2765; J3010; J3370; J3490; J7050; P9045; Q9967; S0020; S0028; U0002; U0003; U0005

== ENCOUNTER 2021-10-18 02:10 | Emergency (ER) | payer OTHER, SELFPAY ==
[2021-10-18] MEDS ORDERED: Dextrose 50% Abboject 50 ML SYRINGE ONE (02:18)
[2021-10-18 03:29] LABS: #Eosinphils 0.2 thou/uL (0.0-0.7); #Lymphocytes 1.4 thou/uL (1.20-3.40); #Monocytes 0.5 thou/uL (0.11-0.59); #Neutrophils 6.4 thou/uL (1.40-6.50); %Basophils 0.3 % (0.0-1.0); %Eosinophils 2.3 % (0.0-10.0); %Lymphocytes 16.6 % (21.0-51.0); %Monocytes 5.3 % (0.0-10.0); %Neutrophils 75.5 % (42.0-75.0); Hemoglobin 11.8 g/dL (14.0-18.0); Mean Corpuscular HGB CONC 31.9 g/dL (32.0-36.0); Mean Corpuscular Hemoglobin 27.8 pg (27.0-31.0); Mean Corpuscular Volume 87.1 fL (78.0-98.0); Mean Platelet Volume 6.8 fL (7.4-10.4); Platelet Count 405 thou/uL (130-400); RBC Distribution Width 14.5 % (11.5-14.5); Red Blood Cell (RBC) Count 4.25 mill/uL (4.70-6.10); White Blood Cell (WBC) Count 8.5 thou/uL (4.8-10.8)
[2021-10-18 04:13] LABS: ALT (SGPT) 15 U/L (8-55); AST (SGOT) 23 U/L (5-34); Albumin 3.8 g/dL (3.5-5.0); Alkaline Phosphatase 91 U/L (40-110); Anion Gap 18 mmol/L (10-20); BUN (Urea Nitrogen) 19 mg/dL (8.4-25.7); Bilirubin, Total 0.4 mg/dL (0.2-1.2); Calc. Creatinine Clearance 0 mL/min (70-130); Calcium 9.9 mg/dL (7.8-10.44); Carbon Dioxide 24 mmol/L (22-29); Chloride 101 mmol/L (98-107); Estimated GFR 98; Globulin 5.2 g/dL (2.4-3.5); Glucose 99 mg/dL (70-105); Potassium 3.4 mmol/L (3.5-5.1); Sodium 140 mmol/L (136-145)
== END 2021-10-18 07:10 | disposition home or self-care (01) ==
LOC: ERS 02:10
DX: E11.649 Type 2 diabetes mellitus with hypoglycemia without coma (principal); I10 Essential (primary) hypertension; F17.220 Nicotine dependence, chewing tobacco, uncomplicated; Z79.84 Long term (current) use of oral hypoglycemic drugs; Z79.899 Other long term (current) drug therapy
CPT/HCPCS: 36415; 36416; 80053; 85025; 96374; J7999

== ENCOUNTER 2021-12-01 07:22 | Outpatient (CLI) | payer OTHER, SELFPAY | END 2021-12-01 07:23 | disposition home or self-care (01) | LOC: RAD 07:22 | PROVIDERS: ATTEND Emergency Medicine | DX: S22.009D Unspecified fracture of unspecified thoracic vertebra, subsequent encounter for fracture with routine healing (principal); S32.009D Unspecified fracture of unspecified lumbar vertebra, subsequent encounter for fracture with routine healing; Z98.890 Other specified postprocedural states | CPT/HCPCS: 72072; 72100 ==

== ENCOUNTER 2024-02-02 16:32 | Inpatient (IN) | payer SELFPAY ==
[2024-02-02] MEDS ORDERED: Ondansetron ODT 4 MG TAB PO PRN (18:51)
[2024-02-02] MEDS ORDERED: Insulin Lispro 100 UNIT/ML 10 ML VIAL SC PRN ×2 (18:51)
[2024-02-02] MEDS ORDERED: Ondansetron PF 4 MG/2 ML Vial IVP PRN (18:51)
[2024-02-02] MEDS ORDERED: Glucagon 1 MG/ML KIT IM PRN (18:51)
[2024-02-02] MEDS ORDERED: Dextrose 5% in Water 1,000 ML IV PRN (18:51)
[2024-02-02] MEDS ORDERED: Dextrose 50% Abboject 50 ML SYRINGE SLOW IVP PRN (18:51)
[2024-02-02 19:51] LABS: #Basophils 0.05 10x3/uL (0.0-0.2); %Basophils 0.3 % (0.0-1.0); %Eosinophils 0.4 % (0.0-10.0); %Lymphocytes 8.6 % (21.0-51.0); %Monocytes 5.9 % (0.0-10.0); %Neutrophils 84.4 % (42.0-75.0); Hematocrit 43.4 % (42.0-52.0); Hemoglobin 14.4 g/dL (14.0-18.0); Mean Corpuscular HGB CONC 33.2 g/dL (32.0-36.0); Mean Corpuscular Volume 87.3 fL (78.0-98.0); Mean Platelet Volume 9.2 fL (7.4-10.4); Platelet Count 237 10x3/uL (130-400); RBC Distribution Width 13.4 % (11.5-14.5); Red Blood Cell (RBC) Count 4.97 mill/uL (4.70-6.10)
[2024-02-02] MEDS: Acetaminophen 325 MG TAB PO PRN (19:52)
[2024-02-02] MEDS: Ketorolac Tromethamine 30 MG (1 mL) VIAL IVP PRN (19:53)
[2024-02-02] MEDS: Tamsulosin HCl 0.4 MG CAP PO SCH (19:53)
[2024-02-02] MEDS: Piperacillin/Tazobactam 3.375 GM in Sodium Chloride 0.9% 100 ML IVPB SCH (19:54)
[2024-02-02] MEDS: Sodium Chloride 0.9% 1,000 ML IV SCH (19:55)
[2024-02-02 20:14] LABS: ALT (SGPT) 25 U/L (8-55); AST (SGOT) 25 U/L (5-34); Albumin 3.7 g/dL (3.5-5.0); Alkaline Phosphatase 65 U/L (40-110); Anion Gap 16 mmol/L (10-20); BUN (Urea Nitrogen) 12 mg/dL (8.4-25.7); Calc. Creatinine Clearance 0 mL/min (70-130); Calcium 8.8 mg/dL (7.8-10.44); Carbon Dioxide 22 mmol/L (22-29); Chloride 99 mmol/L (98-107); Estimated GFR 82; Globulin 3.9 g/dL (2.4-3.5); Glucose 72 mg/dL (70-105); Potassium 3.6 mmol/L (3.5-5.1); Protein, Total 7.6 g/dL (6.0-8.3); Sodium 133 mmol/L (136-145)
[2024-02-03] MEDS: Piperacillin/Tazobactam 3.375 GM in Sodium Chloride 0.9% 100 ML IVPB SCH (00:40)
[2024-02-03] MEDS: Amlodipine 10 MG TAB PO SCH (09:14)
[2024-02-03] MEDS: Losartan 25 MG TAB PO SCH (09:14)
[2024-02-03] MEDS: Hydrochlorothiazide 25 MG TAB PO SCH (09:14)
[2024-02-03 09:47] LABS: #Basophils 0.05 10x3/uL (0.0-0.2); %Basophils 0.4 % (0.0-1.0); %Eosinophils 0.9 % (0.0-10.0); %Lymphocytes 10.6 % (21.0-51.0); %Monocytes 5.7 % (0.0-10.0); %Neutrophils 82.2 % (42.0-75.0); Hematocrit 45.8 % (42.0-52.0); Hemoglobin 14.8 g/dL (14.0-18.0); Mean Corpuscular HGB CONC 32.3 g/dL (32.0-36.0); Mean Corpuscular Hemoglobin 28.5 pg (27.0-31.0); Mean Corpuscular Volume 88.1 fL (78.0-98.0); Platelet Count 231 10x3/uL (130-400); RBC Distribution Width 13.2 % (11.5-14.5)
[2024-02-04 05:06] LABS: #Basophils 0.05 10x3/uL (0.0-0.2); %Basophils 0.5 % (0.0-1.0); %Lymphocytes 11.8 % (21.0-51.0); %Monocytes 6.1 % (0.0-10.0); Hematocrit 42.7 % (42.0-52.0); Mean Corpuscular HGB CONC 32.8 g/dL (32.0-36.0); Mean Corpuscular Hemoglobin 28.6 pg (27.0-31.0); Mean Corpuscular Volume 87.3 fL (78.0-98.0); Mean Platelet Volume 9.2 fL (7.4-10.4); Platelet Count 233 10x3/uL (130-400); RBC Distribution Width 13.2 % (11.5-14.5); Red Blood Cell (RBC) Count 4.89 mill/uL (4.70-6.10)
[2024-02-04 05:31] LABS: ALT (SGPT) 23 U/L (8-55); AST (SGOT) 27 U/L (5-34); Albumin 3.3 g/dL (3.5-5.0); Alkaline Phosphatase 63 U/L (40-110); Anion Gap 15 mmol/L (10-20); BUN (Urea Nitrogen) 10 mg/dL (8.4-25.7); Bilirubin, Total 0.8 mg/dL (0.2-1.2); Calc. Creatinine Clearance 0 mL/min (70-130); Carbon Dioxide 22 mmol/L (22-29); Chloride 103 mmol/L (98-107); Estimated GFR 101; Globulin 4.3 g/dL (2.4-3.5); Glucose 120 mg/dL (70-105); Potassium 3.7 mmol/L (3.5-5.1); Protein, Total 7.6 g/dL (6.0-8.3); Sodium 136 mmol/L (136-145)
[2024-02-04 08:31] VITALS: BP 137/74; TEMP 98.3
== END 2024-02-04 14:00 | disposition home or self-care (01) | DRG 872 ==
LOC: MSONC 17:12
PROVIDERS: ADMIT Internal Medicine; ATTEND Internal Medicine
DX: A41.9 Sepsis, unspecified organism (principal); N20.1 Calculus of ureter; K57.32 Diverticulitis of large intestine without perforation or abscess without bleeding; E11.9 Type 2 diabetes mellitus without complications; I10 Essential (primary) hypertension; Z98.890 Other specified postprocedural states; Z79.899 Other long term (current) drug therapy
CPT/HCPCS: 36415; 36416; 80053; 85025; J1885; J2543; J7030